=== PATIENT | male | born 1940 | race Caucasian/White ===

== ENCOUNTER 2020-05-15 14:31 | Emergency (ER) | payer OTHER ==
--- OUTSIDE RECORDS SUMMARY | 2020-05-15 14:34 | XMS REPORT ---
:1940 Author Organization [facility] Address [address] Villalba, [address] [place] [address] Care Team Providers Name Role Phone Montgomery Unavailable [phone] PROBLEMS Type Condition ICD9-CM [id number] Onset Condition SNOMED Code Notes Code Code Dates Status Problem Chronic kidney N18.3 Active 961952959 disease, stage 3 (moderate) Problem Dementia without F03.90 Active 47626624 behavioral disturbance, unspecified dementia type Problem Asymptomatic I65.21 Active 93159520 stenosis of right carotid artery Problem Basal cell C44.41 Active 601962070 carcinoma (BCC) of skin of neck Problem Anxiety and F41.8 Active 204704919 depression Problem Other specified H91.8X3 Active 030709079 hearing loss of both ears Problem Benign essential I10 Active 31702737 HTN Problem GERD K21.9 Active 505450858 (gastroesophageal reflux disease) Problem Hyperlipidemia E78.5 Active 63385583 Problem 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 245239907 cell carcinoma (BCC) Problem Hx of falling Z91.81 Active 290297551 Problem 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 Problem Benign prostatic N40.1 Active 47879133606708 hyperplasia with lower urinary tract symptoms, symptom details unspecified Problem SOB (shortness of R06.02 Active 157083352 breath) Problem 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 Active 943016056 with neuropathy Problem SOB (shortness of R06.02 Active 32009812 breath) on exertion Problem Neuropathy G62.9 Active 415984651 Problem Senile cataract, H25.9 Active 62078395 unspecified age-related cataract type, unspecified laterality Problem 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, without psychotic features ALLERGIES Allergen (clinical drug Drug/Non Drug Allergy Reaction Allergy Type Onset Date Status ingredient) documented on EMR penicillin Unknown Drug Allergy Active codeine codeine Unknown Drug Allergy Active ENCOUNTERS from 1940 to 2020-03-23 Encounter Location Date Provider Diagnosis [facility] [address] Mar, Rubi Montgomery [facility] [place], [place] depressi on F41.8 ; [id number] Benign essentia l HTN I10 and SOB (shortness of b reath) R06.02 IMMUNIZATIONS Vaccine Route Administration Date Status Flucelvax - multidose vial IM Intramuscular Apr 21, 2019 Admi nistered SOCIAL HISTORY Tobacco Use: Social History Observation Description Date Details (start date - stop date) Never Smoker Sex Assigned At : Social History Observation Description Sex Assigned At Unknown PHQ9 Question Answer Notes Little interest or pleasure in doing Nearly every day things Feeling down, depressed, or hopeless Nearly every day Trouble falling or staying asleep or More than half the days sleeping too much Feeling tired or having little energy More than half the day s Poor appetite or overeating Not at all Feeling bad about yourself, or that you Not at all are a failure, or have let yourself or your family down Trouble concentrating on things, such as Not at all reading the newspaper or watching television Moving or speaking so slowly that other Not at all people could have noticed; or the opposite, being so fidgety or restless that you have been moving around a lot more than usual Total Score 11 Interpretation Moderate Depression Thoughts that you would be better off 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 No Points 0 Interpretation Negative Tobacco Use/Smoking Question Answer Notes Are you a never smoker REASON FOR REFERRAL No Information VITAL SIGNS No information MEDICATIONS Medication SIG (Take, Route, Start Date End Date Status Frequency, Duration) Pantoprazole Sodium 40 MG 1 tablet Orally Once a day September, Active for 30 day(s) Tradjenta 5 MG 1 tablet Orally Once a day Active ProAir HFA 108 (90 Base) 2 puffs as needed Nov, Active MCG/ACT Inhalation every 6 hrs as needed for breathing for 30 days Venlafaxine HCl ER 150 MG 1 tablet with food Orally Apr, Active Once a day for 90 days MetFORMIN HCl ER (OSM) 1000 Take 1 tablet by mouth Active MG twice daily with meals. for 90 Losartan Potassium 50 MG Take 1 tablet by mouth Active daily. for 90 Pravastatin Sodium 40 MG Take 1 tablet by mouth Active daily. for 90 Venlafaxine HCl ER 75 MG 1 tablet with food Orally Active Once a day for 90 days Aripiprazole 5 MG 1 tablet Orally Once a day Jan, Active for 90 day(s) Donepezil HCl 5 MG Take 1 tablet by mouth at Active bedtime. for 90 PROCEDURES No Information RESULTS No Results REASON FOR VISIT Referrals MEDICAL (GENERAL) HISTORY Type Description Date Medical History Asymptomatic stenosis of right carotid a rtery Medical History Dementia without behavioral disturbance, unspecified dementia type Medical History Diabetes mellitus with neuropathy Medical History Chronic kidney disease, stage 3 (moderat e) Medical History Anxiety and depression Medical History Benign essential HTN Medical History Hyperlipidemia Medical History GERD (gastroesophageal reflux disease) Medical History Benign prostatic hyperplasia with lower urinary tract symptoms, symptom details unspecified Medical History Other specified hearing loss of both ear s Medical History Basal cell carcinoma (BCC) of skin of ne ck Medical History Adenoid basal cell carcinoma (BCC) Medical History Hx of falling Medical History SOB (shortness of breath) on exertion Surgical History pre cancer 1988 Goals Section No Information Health Concerns No Information MEDICAL EQUIPMENT No Information MENTAL STATUS No Information FUNCTIONAL STATUS No Information ASSESSMENTS Encounter Date Diagnosis Notes Mar, Benign essential HTN (ICD-10 - I10) Mar, SOB (shortness of breath) (ICD-10 - R06. 02) Mar, Anxiety and depression (ICD-10 - F41.8) PLAN OF TREATMENT Medication Medication Name Sig Start Date Stop Date MetFORMIN HCl ER (OSM) 1000 MG Take 1 tablet by mouth twice daily with meals. for 90 Aripiprazole 5 MG 1 tablet Orally Once a day for Jan, 90 day(s) Donepezil HCl 5 MG Take 1 tablet by mouth at bedtime. for 90 Venlafaxine HCl ER 150 MG 1 tablet with food Orally Once Apr, a day for 90 days Tradjenta 5 MG 1 tablet Orally Once a day Insurance Providers Payer Name Payer Payer Insured Patient Coverage Coverage End Address Phone Name Relationship to Start Date Bola e Insured [employer] [phone] Link,Stevie self [facility] [id number] [place] Replace [phone]
--- OUTSIDE RECORDS SUMMARY | 2020-05-15 14:34 | XMS REPORT ---
:[address] [facility] Address [address] Vill[address], [address] [place] [address] Care Team Providers Name Role Phone Montgomery Unavailable [phone] PROBLEMS Type Condition ICD9-CM [id number] Onset Condition SNOMED Code Notes Code Code Dates Status Problem Other specified H91.8X3 Active 194654051 hearing loss of both ears Problem Asymptomatic I65.21 Active 68925905 stenosis of right carotid artery Problem Anxiety and F41.8 Active 160781689 depression Problem Benign prostatic N40.1 Active 39045331686390 hyperplasia with lower urinary tract symptoms, symptom details unspecified Problem Benign essential I10 Active 43601662 HTN Problem GERD K21.9 Active 944638417 (gastroesophageal reflux disease) Problem 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 Active 448751741 with neuropathy Problem Hyperlipidemia E78.5 Active 85364287 Problem SOB (shortness of R06.02 Active 45555393 breath) on exertion Problem Senile cataract, H25.9 Active 74677347 unspecified age-related cataract type, unspecified laterality Problem Neuropathy G62.9 Active 091744040 Problem Benign prostatic N40.0 Active 937796139 hyperplasia without lower urinary tract symptoms Problem Hx of falling Z91.81 Active 810421572 Problem Chronic kidney N18.3 Active 553203278 disease, stage 3 (moderate) Problem Primary insomnia F51.01 Active 0543030 Problem 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 550905308 carcinoma (BCC) Problem Dementia without F03.90 Active 77760476 behavioral disturbance, unspecified dementia type Problem Basal cell C44.41 Active 098727435 carcinoma (BCC) of skin of neck Problem 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 95411890 recurrent major depressive disorder, without psychotic features Problem 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 33013243 mellitus with diabetic chronic kidney disease Problem SOB (shortness of R06.02 Active 213319646 breath) Problem Gastroesophageal K21.9 Active 130796764 reflux disease, unspecified whether esophagitis present ALLERGIES Allergen (clinical drug Drug/Non Drug Allergy Reaction Allergy Type Onset Date Status ingredient) documented on EMR penicillin Unknown Drug Allergy Active codeine codeine Unknown Drug Allergy Active ENCOUNTERS from 1940 to 2020-05-14 Encounter Location Date Provider Diagnosis [facility] [address] [facility] [address] May, 2020 [place] [address] IMMUNIZATIONS Vaccine Route Administration Date Status Flucelvax [...] would be better off 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 No Points 0 Interpretation Negative Tobacco Use/Smoking Question Answer Notes Are you a never smoker REASON FOR REFERRAL No Information VITAL SIGNS No information MEDICATIONS Medication SIG (Take, Route, Notes Start Date End Date Status Frequency, Duration) Pantoprazole Sodium 40 1 tablet Orally Once a September, Active MG day for 30 day(s) MetFORMIN HCl ER (OSM) Take 1 tablet by mouth Active 1000 MG twice daily with meals. for 90 Pravastatin Sodium 40 MG Take 1 tablet by mouth Active daily. for 90 Venlafaxine HCl ER 75 MG TAKE 1 CAPSULE BY Active MOUTH EVERY DAY WITH FOOD for 90 Tamsulosin HCl 0.4 MG 1 capsule Orally Once May, 1 Oct, Active a day for 90 days Trazodone HCl 50 MG 1 tablet at bedtime as May, Active needed Orally Once a day for 30 days Donepezil HCl 5 MG Take 1 tablet by mouth Active at bedtime. for 90 Venlafaxine HCl ER 150 1 tablet with food Apr, Active MG Orally Once a day for 90 days ProAir HFA 108 (90 Base) 2 puffs as needed Nov, Active MCG/ACT Inhalation every 6 hrs as needed for breathing for 30 days Losartan Potassium 50 MG Take 1 tablet by mouth Active daily. for 90 Aripiprazole 5 MG 1 tablet Orally Once a 09 Jan, 2020 Active day for 90 day(s) Tradjenta 5 MG 1 tablet Orally Once a Active day PROCEDURES No Information RESULTS No Results REASON FOR VISIT Sick MEDICAL (GENERAL) HISTORY Type Description Date Medical [...] No Information FUNCTIONAL STATUS No Information ASSESSMENTS No Information PLAN OF TREATMENT Medication Medication Name Sig Start Date Stop Date Tamsulosin HCl 0.4 MG 1 capsule Orally Once a day for 90 May, Oct, days Trazodone HCl 50 MG 1 tablet at bedtime as needed Orally May, Once a day for 30 days Insurance Providers Payer Name Payer Payer Insured Patient Coverage Coverage End Address Phone Name Relationship to Start Date Bola e Insured [employer] [phone] Link self [facility] [id number] Jr,Nolan P [place] Replace [phone]
--- OUTSIDE RECORDS SUMMARY | 2020-05-15 14:34 | XMS REPORT | Continuity of Care Document ---
:1940 Author Organization [facility] t Address [address] [place] [address] [address] [place] [address] Care Team Providers Name Role Phone Unavailable Unavailable Unavailable Problems This patient has no known problems. Allergies, Adverse Reactions, Alerts Allergy Allergy Status Severity Reaction(s) Onset Inactive Treating Comm ents Source Name Type Date Date Clinician penicill Adverse Active Info [facility] Reaction Available [facility] codeine Adverse Active Info Not [facility] Reaction Available [facility] Medications Ordered Filled Start Stop Current Ordering Indication Dosage Frequency Signature Comments Components Source Medication Medication Date Date Medication? Clinician (SIG) Name Name Aripiprazol Aripiprazol Yes Na Montgomery [address] [facility] Pantoprazol Pantoprazol Yes Na Montgomery [address] [facility] Sodium e Sodium 5-29 [facility] Venlafaxine Venlafaxine 2018-06 Yes Na Montgomery [address] [facility] HCl ER HCl ER 1-22 with food [facility] ProAir HFA ProAir HFA Yes Na Montgomery [address] [facility] 7-15 needed [facility] Venlafaxine Venlafaxine Yes Na Montgomery [address] [facility] HCl ER HCl ER with food [facility] MetFORMIN MetFORMIN Yes Na Montgomery Take [address] [facility] HCl ER HCl ER tablet by [facility] - (OSM) (OSM) mouth [facility] twice l daily with Outpati meals. ent Clinics Pravastatin Pravastatin Yes Na Montgomery Take [address] [facility] Sodium Sodium tablet by [facility] daily[facility] l [facility] Donepezil Donepezil Yes Na Montgomery Take [address] [facility] HCl HCl tablet by [facility] mouth at [facility] bedtime. l [facility] Tradjenta Tradjenta Yes Na Montgomery [address] [facility] Losartan Losartan Yes Na Montgomery Take [address] Potassium Potassium tablet by [facility] daily[facility] l [facility] Procedures This patient has no known procedures. Encounters Start End Encounter Admission Attending Care Care Encounter Source Date/Time Date/Time Type Type Clinicians Facility Department ID 2020-05-14 2020-05-14 [facility] [id number] [facility] 2020-03-23 2020-03-23 [facility] [id number] [facility] 2020-02-08 2020-02-08 [facility] [id number] 11:20[facility] 11:20:00 [facility] l Medicine Outpati ent Clinics 2020-01-28 2020-01-28 [facility] [id number] 17[facility]16[facility] 17[facility]00 [facility] Family [facility] l Medicine Outpati ent Clinics 2019-10-28 2019-10-28 [facility] [id number] 09:40:00 09:40:00 [facility] l Medicine Outpati ent Clinics 2019-09-12 2019-09-12 [facility] [id number] 15:36:00 15:36:00 [facility] l Medicine Outpati ent Clinics 2019-07-08 2019-07-08 [facility] [id number] 14:00:00 14:00:00 [facility] Medicine Outpat[facility] Clinics Results This patient has no known results.
[2020-05-15 15:53] LABS: Protime INR 1.12
--- NOTE | 2020-05-15 16:01 | RAD REPORT ---
EXAM DESCRIPTION: CT - Head Brain Wo Cont - 05/15/2020 3:49 pm CLINICAL HISTORY: Dizziness and weakness COMPARISON: None TECHNIQUE: Computed axial tomography of the head was obtained. IV contrast was not requested. All CT scans are performed using dose optimization technique as appropriate and may include automated exposure control or mA/KV adjustment according to patient size. FINDINGS: An intracranial bleed is not seen . The ventricles are normal in caliber. No extra-axial fluid collection is noted. Mild low-density areas within periventricular, deep and subcortical white matter likely represent isc hemic changes secondary to small vessel disease. Fluid within the sinuses/ mastoids is not seen. IMPRESSION: No acute intracranial abnormality is seen. If patient's symptoms persist MRI of the bra in would be recommended.
[2020-05-15 16:13] LABS: Absolute Lymphocytes (CBC) 1.3 K/uL (0.7-4.9); Basophils % 0.6 % (0-1.3); Hematocrit 40.7 % (39.6-49.0); Lymphocytes % 20.2 % (15.3-44.8); MPV 8.9 fL (7.6-11.3)
--- NOTE | 2020-05-15 16:14 | RAD REPORT ---
EXAM DESCRIPTION: CT - Angio Aorta For Dissection - 05/15/2020 3:51 pm CLINICAL HISTORY: Chest and abdominal pain COMPARISON: 2018 TECHNIQUE: Computed tomography angiography of the chest, abdomen pelvis were obtained. 100 cc Isovue 370 was administered intravenously. Coronal and sagittal reconstruction were performed. MIP 3D reconstruction was performed All CT scans are performed using dose optimization technique as appropriate and may include automated exposure control or mA/KV adjustment according to patient size. FINDINGS: An aortic dissection is not seen. An aortic aneurysm is not displayed. The celiac, SMA and JUANCHO are patent . A lung consolidation is not present. A pericardial effusion is not seen. A pleural effusion is not n oted. The liver,spleen, pancreas adrenals kidneys demonstrate no significant abnormality. The appendix is normal. There no evidence diverticulitis. Hepatic and renal cysts are present. The pr ostate gland is mildly enlarged. Spondylosis involves lumbar spine resulting in spinal stenosis. Smal l umbilical hernia. IMPRESSION: Negative for an aortic dissection.
[2020-05-15 16:31] LABS: ALT/SGPT 10 U/L (12-78); AST/SGOT 15 U/L (15-37); Albumin 2.9 g/dL (3.4-5.0); Alkaline Phosphatase 57 U/L (45-117); BUN Blood Urea Nitrogen 19 mg/dL (7-18); Bicarbonate 28 mmol/L (21-32); Bilirubin Direct 0.2 mg/dL (0-0.2); Bilirubin Total 0.6 mg/dL (0.2-1.0); Glucose Level 131 mg/dL (74-106); Magnesium 1.7 mg/dL (1.8-2.4); NT PRO-BNP 558 pg/mL (<450); Potassium 3.3 mmol/L (3.5-5.1); Protein, Total 5.6 g/dL (6.4-8.2); Sodium Level 140 mmol/L (136-145); Troponin (Emerg Dept Use Only) < 0.02 ng/mL (0.0-0.045)
--- NOTE | 2020-05-15 16:43 | RAD REPORT ---
EXAM DESCRIPTION: Mark Single View05/15/2020 3:50 pm CLINICAL HISTORY: Chest pain COMPARISON: 2017 FINDINGS: The lungs appear clear of acute infiltrate. The heart is normal size IMPRESSION: No acute abnormalities displayed
[2020-05-15 18:02] LABS: Urine Blood NEGATIVE (NEG); Urine Glucose NEGATIVE (NEG); Urine Protein NEGATIVE (NEG); Urine Specific Gravity 1.015 (1.005-1.030)
[2020-05-15] MEDS ORDERED: NA CHLORIDE 0.9% 500 ML ONE (18:43)
--- NOTE | 2020-05-15 18:54 | ER ---
Nurse's Notes [facility] Name: Stevie López Age: 80 yrs Sex: Male : 1940 Arrival Date: 05/15/2020 Time: 14:32 Bed 6 Private MD: Rubi Montgomery Diagnosis: Lower abdominal pain, unspecified;Cough;Malaise and fatigue Presentation: 05/15 14:35 Risk Assessment: Do you want to hurt yourself or someone else? Patient reports no sv desire to harm self or others. 14:35 Method Of Arrival: Wheelchair sv 14:35 Chief complaint: Patient states: abd bloating, chest congestion, unable to eat foods sv that bloat him up, nasal discharge/congestion, dizziness x 3 days. s/p fall on Thursday after a fixture broke and fell in the shower, was seen at [place]. Coronavirus screen: Client denies travel out of the [place] in the last 14 days. The client reports previous COVID testing was negative. Date of collection: May 13, 2020. Ebola Screen: No symptoms or risks identified at this time. Onset of symptoms was May 12, 2020. 14:35 Acuity: RANGEL 3 sv 14:41 Initial Sepsis Screen: Does the patient meet any 2 criteria? No. Patient's initial sv sepsis screen is negative. Does the patient have a suspected source of infection? No. Patient's initial sepsis screen is negative. Historical: - Allergies: 14:41 PENICILLINS; sv 14:41 Codeine; sv - PMHx: 14:41 Diabetes - NIDDM; Dementia; Alzheimers; Depression; Bipolar disorder; sv - PSHx: 14:41 Growth removed from back of neck; Growth removed from the neck of the urinary bladder; sv - Immunization history:: Adult Immunizations up to date, Flu vaccine is not up to date. - Social history:: Smoking status: Patient denies any tobacco usage or history of. Screenin:49 Abuse screen: Denies threats or abuse. Nutritional screening: No deficits noted. tw2 Tuberculosis screening: No symptoms or risk factors identified. Fall Risk Secondary diagnosis (15 points). Assessment: 14:56 Reassessment: provider at bedside at this time. tw2 15:30 Reassessment: While assessing pt he became tearful and reported that of 40+ years ph in December. General: Appears in no apparent distress. comfortable, slender, Behavior is calm, cooperative, appropriate for age. Pain: Complains of pain in mid-sternal area Pain radiates to abdomen. Neuro: Level of Consciousness is awake, alert, obeys commands, Oriented to person, place, time, situation. Cardiovascular: Capillary refill < 3 seconds in bilateral fingers Patient's skin is warm and dry. Respiratory: Airway is patent Respiratory effort is even, unlabored, Respiratory pattern is regular, symmetrical, Denies cough, shortness of breath. GI: Abdomen is flat, non-distended, Reports upper abdominal pain, bloating, intolerance of food, Patient currently denies diarrhea, vomiting. Derm: Skin is intact, Skin is pink, warm \T\ dry. Musculoskeletal: Circulation, motion, and sensation intact. Range of motion: intact in all extremities. 16:42 Reassessment: Patient appears in no apparent distress at this time. No changes from tw2 previously documented assessment. Patient and/or family updated on plan of care and expected duration. Pain level reassessed. Patient is alert, oriented x 3, equal unlabored respirations, skin warm/dry/pink. 17:43 Reassessment: Patient appears in no apparent distress at this time. Patient and/or ph family updated on plan of care and expected duration. Pain level reassessed. Patient is alert, oriented x 3, equal unlabored respirations, skin warm/dry/pink. 18:52 Reassessment: Patient appears in no apparent distress at this time. Patient and/or ph family updated on plan of care and expected duration. Pain level reassessed. Patient is alert, oriented x 3, equal unlabored respirations, skin warm/dry/pink. Vital Signs: 14:41 BP 136 / 81; Pulse 84; Resp 16; Temp 98.7; Pulse Ox 99% ; Weight 77.11 kg; Height 6 ft. sv 0 in. (182.88 cm); 16:41 BP 166 / 79; Pulse 66; Resp 17; Pulse Ox 100% on R/A; tw2 17:43 BP 167 / 79; Pulse 69; Resp 16; Pulse Ox 98% on R/A; ph 18:53 BP 171 / 87; Pulse 67; Resp 18; Pulse Ox 98% on R/A; ph 14:41 Body Mass Index 23.06 (77.11 kg, 182.88 cm) ED Course: 14:32 Patient arrived in ED. as 14:33 Rubi Montgomery MD is Private Physician. as 14:34 Arm band placed on. sv 14:38 Triage completed. sv 14:49 Norman Grace PA is PHCP. jmm 14:49 Selwyn Monroe MD is Attending Physician. jmm 14:58 Cammy Mullen, RN is Primary Nurse. ph 15:37 Patient has correct armband on for positive identification. Bed in low position. Call light in reach. Side rails up X 1. Pulse ox on. NIBP on. Door closed. Noise minimized. Warm blanket given. 15:38 Initial lab(s) drawn, by me, sent to lab. Inserted saline lock: 22 gauge in right ph antecubital area, using aseptic technique. Blood collected. 15:48 CT Head Brain wo Cont In Process Unspecified. EDMS 15:50 XRAY Chest (1 view) In Process Unspecified. EDMS 15:52 CT Aorta for Dissection In Process Unspecified. EDMS 17:47 No provider procedures requiring assistance completed. ph 18:51 Rubi Montgomery MD is Referral Physician. jmm 18:51 Salomón Black MD is Referral Physician. jmm 18:52 Jewel Graff MD is Referral Physician. jmm 18:54 Qing Ewing MD is Referral Physician. jmm 18:54 Varun Amin MD is Referral Physician. jmm 19:32 IV discontinued, intact, bleeding controlled, No redness/swelling at site. Pressure mg2 dressing applied. Administered Medications: 18:35 Drug: NS 0.9% 500 ml Route: IV; Rate: calculated rate; Site: right antecubital; ph Outcome: 18:53 Discharge ordered by MD. jmm 19:33 Discharged to home via wheelchair. mg2 19:33 Condition: stable 19:33 Discharge instructions given to patient, Instructed on discharge instructions, follow up and referral plans. Demonstrated understanding of instructions, follow-up care. 19:33 Patient left the ED. mg2 Signatures: Dispatcher [employer] EDMS Belinda Fischer RN RN Norman Grace PA PA jmLyndsay Stern as Cammy Mullen RN RN Padmini Garcia RN RN tw2 Ming Willis, RN RN mg2 Corrections: (The following items were deleted from the chart) 14:43 14:41 Pulse 84bpm; Resp 16bpm; Pulse Ox 99%; Temp 98.7F; 77.11 kg; Height 6 ft. 0 in.; sv BMI: 23.0; sv
--- NOTE | 2020-05-15 18:54 | EDPHYS ---
Physician Documentation [facility] [place] Name: Stevie López Age: 80 yrs Sex: Male : 1940 Arrival Date: 05/15/2020 Time: 14:32 Bed 6 Private MD: Rubi Montgomery ED Physician Selwyn Monroe HPI: 05/15 15:02 This 80 yrs old Male presents to ER via Wheelchair with complaints of jmm Abdominal Swelling, Chest Congestion, Dizziness, Sore Throat. 15:02 The patient presents with abdominal pain in the lower abdomen. Onset: The jmm symptoms/episode began/occurred gradually, 1 week(s) ago. The symptoms do not radiate. Associated signs and symptoms: Pertinent positives: constipation, Pertinent negatives: nausea and vomiting. This is an 80 year old male with a history of dm, alzheimers, depression, bipolar that presents to the ED with complaints of weakness, fatigue, lower abdominal pain which ascends into his chest. Patient states having episodes of near syncope. This began after an initial fall 1 week ago. Patient prescribed levaquin for lower abdominal pain. . Historical: - Allergies: 14:41 PENICILLINS; sv 14:41 Codeine; sv - PMHx: 14:41 Diabetes - NIDDM; Dementia; Alzheimers; Depression; Bipolar disorder; sv - PSHx: 14:41 Growth removed from back of neck; Growth removed from the neck of the urinary bladder; sv - Immunization history:: Adult Immunizations up to date, Flu vaccine is not up to date. - Social history:: Smoking status: Patient denies any tobacco usage or history of. ROS: 15:02 Constitutional: Positive for fatigue. jmm 15:02 Cardiovascular: Positive for 15:02 Respiratory: Positive for cough. 15:02 Abdomen/GI: Positive for abdominal pain. 15:02 Neuro: Positive for syncope. 15:02 All other systems are negative. Exam: 15:02 Constitutional: This is a well developed, well nourished patient who is awake, alert, jmm and in no acute distress. Head/Face: atraumatic. Eyes: EOMI, no conjunctival erythema appreciated ENT: Moist Mucus Membranes Neck: Trachea midline, Supple Chest/axilla: Normal chest wall appearance and motion. Cardiovascular: Regular rate and rhythm. No edema appreciated Respiratory: Normal respirations, no respiratory distress appreciated Abdomen/GI: Non distended, soft Back: Normal ROM Skin: General appearance color normal MS/ Extremity: Moves all extremities, no obvious deformities appreciated, no edema noted to the lower extremities Neuro: Awake and alert, normal gait Psych: Behavior is normal, Mood is normal, Patient is cooperative and pleasant Vital Signs: 14:41 BP 136 / 81; Pulse 84; Resp 16; Temp 98.7; Pulse Ox 99% ; Weight 77.11 kg; Height 6 ft. sv 0 in. (182.88 cm); 16:41 BP 166 / 79; Pulse 66; Resp 17; Pulse Ox 100% on R/A; tw2 17:43 BP 167 / 79; Pulse 69; Resp 16; Pulse Ox 98% on R/A; ph 18:53 BP 171 / 87; Pulse 67; Resp 18; Pulse Ox 98% on R/A; ph 14:41 Body Mass Index 23.06 (77.11 kg, 182.88 cm) sv MDM: 14:49 Patient medically screened. shira 18:50 Data reviewed: vital signs, nurses notes. Counseling: I had a detailed discussion with vi the patient and/or guardian regarding: the historical points, exam findings, and any diagnostic results supporting the discharge/admit diagnosis, lab results, radiology results, the need for outpatient follow up, to return to the emergency department if symptoms worsen or persist or if there are any questions or concerns that arise at home. ED course: Patient is alert and non toxic in appearance. I discussed the need to follow up with pcp for further evaluation. Patient was otherwise given strict return precautions. Patient understood and agrees with the plan of care. . 05/15 15:02 Order name: Basic Metabolic Panel; Complete Time: 16:31 [facility] 05/15 15:02 Order name: CBC with Diff; Complete Time: 16:18 [facility] 05/15 15:02 Order name: LFT's; Complete Time: 16:31 [facility] 05/15 15:02 Order name: Magnesium; Complete Time: 16:31 [facility] 05/15 15:02 Order name: NT PRO-BNP; Complete Time: 16:31 [facility] 05/15 15:02 Order name: PT-INR; Complete Time: 16:10 [facility] 05/15 15:02 Order name: Troponin (emerg Dept Use Only); Complete Time: 16:31 [facility] 05/15 15:02 Order name: XRAY Chest (1 view); Complete Time: 16:47 [facility] 05/15 15:02 Order name: EKG; Complete Time: 15:03 [facility] 05/15 15:02 Order name: Cardiac monitoring; Complete Time: 15:35 [facility] 05/15 15:02 Order name: CT Aorta for Dissection; Complete Time: 16:18 [facility] 05/15 15:02 Order name: CT Head Brain wo Cont; Complete Time: 16:10 [facility] 05/15 17:26 Order name: Urine Dipstick--Ancillary (enter results); Complete Time: 18:03 em1 05/15 15:02 Order name: EKG - Nurse/Tech; Complete Time: 15:35 [facility] 05/15 15:02 Order name: IV Saline Lock; Complete Time: 15:35 [facility] 05/15 15:02 Order name: Labs collected and sent; Complete Time: 15:35 [facility] 05/15 15:02 Order name: O2 Per Protocol; Complete Time: 15:35 [facility] 05/15 15:02 Order name: O2 Sat Monitoring; Complete Time: 15:35 [facility] 05/15 16:33 Order name: Urine Dipstick-Ancillary (obtain specimen); Complete Time: 17:25 [facility] Administered Medications: 18:35 Drug: NS 0.9% 500 ml Route: IV; Rate: calculated rate; Site: right antecubital; ph Disposition: 05/16 11:54 Co-signature as Attending Physician, Selwyn Monroe MD I agree with the assessment and shira plan of care. Disposition: 05/15/20 18:53 Discharged to Home. Impression: Lower abdominal pain, unspecified, Cough, Malaise and fatigue. - Condition is Stable. - Discharge Instructions: Abdominal Pain, Adult, Dehydration, Elderly, Fatigue. - Medication Reconciliation Form, Thank You Letter, Antibiotic Education, Prescription Opioid Use form. - Follow up: Rubi Montgomery MD; When: Tomorrow; Reason: Recheck today's complaints, Continuance of care, Re-evaluation by your physician. Follow up: Salomón Black MD; When: 2 - 3 days; Reason: Recheck today's complaints, Continuance of care, Re-evaluation by your physician. Follow up: Jewel Graff MD; When: 2 - 3 days; Reason: Recheck today's complaints, Continuance of care, Re-evaluation by your physician. Follow up: Qing Ewing MD; When: 2 - 3 days; Reason: Recheck today's complaints, Continuance of care, Re-evaluation by your physician. Follow up: Varun Amin MD; When: 2 - 3 days; Reason: Recheck today's complaints, Continuance of care, Re-evaluation by your physician. Signatures: Dispatcher [employer] Belinda Alvarado RN RN sv Anderson, Corey, MD MD cha Mickail, Joel, PA PA Cammy Donahue RN RN ph Ming Willis RN RN mg2 Corrections: (The following items were deleted from the chart) 05/15 18:54 18:53 05/15/2020 18:53 Discharged to Home. Impression: Lower abdominal pain, jmm unspecified; Cough; Malaise and fatigue. Condition is Stable. Forms are Medication Reconciliation Form, Thank You Letter, Antibiotic Education, Prescription Opioid Use. Follow up: Rubi Montgomery; When: Tomorrow; Reason: Recheck today's complaints, Continuance of care, Re-evaluation by your physician. Follow up: A Black; When: 2 - 3 days; Reason: Recheck today's complaints, Continuance of care, Re-evaluation by your physician. Follow up: Jewel Graff; When: 2 - 3 days; Reason: Recheck today's complaints, Continuance of care, Re-evaluation by your physician. jmm 19:33 18:54 05/15/2020 18:53 Discharged to Home. Impression: Lower abdominal pain, mg2 unspecified; Cough; Malaise and fatigue. Condition is Stable. Forms are Medication Reconciliation Form, Thank You Letter, Antibiotic Education, Prescription Opioid Use. Follow up: Ruib Abarcag; When: Tomorrow; Reason: Recheck today's complaints, Continuance of care, Re-evaluation by your physician. Follow up: A Black; When: 2 - 3 days; Reason: Recheck today's complaints, Continuance of care, Re-evaluation by your physician. Follow up: Jewel Graff; When: 2 - 3 days; Reason: Recheck today's complaints, Continuance of care, Re-evaluation by your physician. Follow up: Qing Ewing; When: 2 - 3 days; Reason: Recheck today's complaints, Continuance of care, Re-evaluation by your physician. Follow up: Varun Amin; When: 2 - 3 days; Reason: Recheck today's complaints, Continuance of care, Re-evaluation by your physician. vi
--- NOTE | 2020-05-16 19:16 | EKG ---
Test Date: 2020-05-15 Test Time: 15:26:55 Deli/Bakery Associate: ELOINA MEASUREMENT RESULTS: Intervals: Rate: 71 CT: QRSD: 118 QT: 438 QTc: 475 [place]: P: CT: QRS: 258 T: 84 INTERPRETIVE STATEMENTS: Atrial fibrillation Right bundle branch block Inferior infarct, age undetermined Anterior infarct, age undetermined Abnormal ECG No previous ECG available for comparison Electronically Signed On 05-16-20 19:12:56 CARBOY FILLER by Dave Henderson
--- NOTE | 2020-05-16 19:16 | EKG ---
Test Date: 2020-05-15 Test Time: 15:27:50 Stud Setter: ELOINA MEASUREMENT RESULTS: Intervals: Rate: 69 WI: 178 QRSD: 142 QT: 446 QTc: 477 [place]: P: 38 WI: 178 QRS: -88 T: 26 INTERPRETIVE STATEMENTS: Normal sinus rhythm Left axis deviation Right bundle branch block Abnormal ECG Compared to ECG 05/15/2020 15:26:55 Left-axis deviation now present Atrial fibrillation no longer present Myocardial infarct finding no longer present Electronically Signed On 05-16-20 19:12:55 MANAGER DOCUMENT CONTROL by Dave Henderson
[2020-05-17 19:03] VITALS: TEMP 98.7
[2020-05-17 19:06] VITALS: O2SAT 98
[2020-05-17 19:07] VITALS: BP 171/87
== END 2020-05-15 19:33 | disposition home or self-care (01) ==
LOC: ER 14:31
DX: R05 Cough (principal); R53.81 Other malaise; R53.83 Other fatigue; G30.9 Alzheimer's disease, unspecified; F02.80 Dementia in other diseases classified elsewhere, unspecified severity, without behavioral disturbance, psychotic disturbance, mood disturbance, and anxiety; Z88.0 Allergy status to penicillin; Z88.5 Allergy status to narcotic agent
CPT/HCPCS: 93005 ×2; 85025; 80048; 36415; 83735; 85610; 82565; 80076; 81003; 84484; 83880; 70450; 71275; 74175; 71045; Q9967; J7040; 99284

== ENCOUNTER 2021-02-01 17:40 | Inpatient (IN) | payer OTHER ==
--- OUTSIDE RECORDS SUMMARY | 2021-02-01 17:43 | XMS REPORT | Continuity of Care Document ---
:1940 Author Organization [facility] t Address [address] [place] [address] [address]. [address] [place] [address] Care Team Providers Name Role Phone Unavailable Unavailable Unavailable Problems This patient has no known problems. Allergies, Adverse Reactions, Alerts Allergy Allergy Status Severity Reaction(s) Onset Inactive Treating Comm ents Source Name Type Date Date Clinician penicill Adverse Active Info Not [facility] Reaction Available [facility] codeine Adverse Active Info Not [facility] Reaction Available [facility] Medications Ordered Filled Start Stop Current Ordering Indication Dosage Frequency Signature Comments Components Source Medication Medication Date Date Medication? Clinician (SIG) Name Name Aripiprazol Aripiprazol Yes Na Montgomery [address] [facility] Pantoprazol Pantoprazol Yes Na Montgomery [address] [facility] Sodium e Sodium 5-29 [facility] Venlafaxine Venlafaxine 2018-06 Yes Na Montgomery [address] [facility] HCl ER HCl ER 1-22 with food [facility] ProAir HFA ProAir HFA Yes Na Montgomery [address] [facility] 7-15 needed [facility] Venlafaxine Venlafaxine Yes Na Montgomery [address] [facility] HCl ER HCl ER with food [facility] MetFORMIN MetFORMIN Yes Na Montgomery Take [...] Date/Time Type Type Clinicians Facility Department ID 2020-12-28 2020-12-[facility] [id number] 2020-11-19 2020-11-19 [facility] [id number] [facility] 2020-11-06 2020-11-06 [facility] [id number] [facility] 2020-10-09 2020-10-09 [facility] [id number] [facility] 2020-09-06 2020-09-06 [facility] [id number] [facility] 2020-09-04 2020-09-04 [facility] [id number] [facility] 2020-08-20 2020-08-20 [facility] [id number] [facility] 2020-08-10 2020-08-10 [facility] [id number] [facility] 2020-08-07 2020[facility]08-07 [facility] [id number] [facility] 2020-08-07 2020-08-07 [facility] [id number] [facility] 2020-08-07 2020-08-07 [facility] [id number] [facility] 2020-08-07 2020-08-07 [facility] [id number] [facility] 2020-08-06 2020-08-06 [facility] [id number] [facility] 2020-08-06 2020-08-06 [facility] [id number] [facility] 2020-07-27 2020-07-27 [facility] [id number] [facility] 2020-07-26 2020-07-26 [facility] [id number] [facility] 2020-07-10 2020-07-10 [facility] [id number] [facility] 2020-05-22 2020-05-22 [facility] [id number] [facility] 2020-05-16 2020-05-16 [facility] [id number] [facility] 2020-05-14 2020-05-14 [facility] [id number] [facility] 2020-05-14 2020-05-14 [facility] [id number] [facility] 2020-03-23 2020-03-23 [facility] [id number] [facility] 2020-02-08 2020-02-08 [facility] [id number] [facility] 11[facility]20[facility] 11:20:[address] [facility] 2020-01-28 2020-01-28 [facility] [id number] [facility] 17:16:00 17:16:00 [facility] Clin[facility] 2019-10-28 2019-10-28 [facility] [id number] [facility] 09[facility]40[facility]00 09:40:[address] [facility] 2019-09-12 2019-09-12 [facility] [id number] [facility] 15:36:00 15:36:[address] [facility] 2019-07-08 2019-07-08 [facility] [id number] [facility] 14:00:00 14:00:[address] [facility] Results This patient has no known results.
--- NOTE | 2021-02-01 18:35 | RAD REPORT ---
EXAM DESCRIPTION: Mark Single View02/01/2021 6:21 pm CLINICAL HISTORY: congestion COMPARISON: 2019 FINDINGS: The lungs appear clear of acute infiltrate. The heart is normal size IMPRESSION: No acute abnormalities displayed
[2021-02-01] MEDS ORDERED: LORAZEPAM 1 MG TABLET ONE (18:59)
[2021-02-01 19:03] LABS: Urine Blood Negative (Negative); Urine Glucose Negative (Negative); Urine Protein Negative (Negative)
--- NOTE | 2021-02-01 19:10 | RAD REPORT ---
EXAM DESCRIPTION: CT - Head Brain Wo Cont - 02/01/2021 6:49 pm CLINICAL HISTORY: Alteration of awareness/confusion COMPARISON: 2019 TECHNIQUE: Computed axial tomography of the head was obtained. IV contrast was not requested. All CT scans are performed using dose optimization technique as appropriate and may include automated exposure control or mA/KV adjustment according to patient size. FINDINGS: An intracranial bleed is not seen . The ventricles are normal in caliber. No extra-axial fluid collection is noted. Mild low-density areas within periventricular, deep and subcortical white matter likely represent is chemic changes secondary to small vessel disease. Fluid within the sinuses/ mastoids is not seen. IMPRESSION: No acute intracranial abnormality is seen. If patient's symptoms persist MRI of the bra in would be recommended.
[2021-02-01 19:20] LABS: Barbiturates NEGATIVE (NEGATIVE); Benzodiazepines NEGATIVE (NEGATIVE); Cocaine NEGATIVE (NEGATIVE); METHAMPHETAM NEGATIVE (NEGATIVE); Methadone NEGATIVE (NEGATIVE); Opiates NEGATIVE (NEGATIVE); Phencyclidine NEGATIVE (NEGATIVE); THC Cannibis NEGATIVE (NEGATIVE)
[2021-02-01 19:42] LABS: Urine Bacteria <20 /HPF (NONE SEEN); Urine RBC <5 /HPF (NONE SEEN)
[2021-02-01 19:43] LABS: Urine Mucus 1+ /HPF (NONE SEEN)
[2021-02-01 20:23] LABS: Basophils % 0.5 % (0-1.3); Hematocrit 39.9 % (39.6-49.0); Lymphocytes % 23.2 % (15.3-44.8); MPV 8.2 fL (7.6-11.3)
[2021-02-01 20:34] LABS: Protime INR 1.1
[2021-02-01 20:46] LABS: ALT/SGPT 16 U/L (12-78); AST/SGOT 9 U/L (15-37); Albumin 3.6 g/dL (3.4-5.0); Alkaline Phosphatase 67 U/L (45-117); BUN Blood Urea Nitrogen 23 mg/dL (7-18); Bicarbonate 30 mmol/L (21-32); Bilirubin Direct 0.2 mg/dL (0-0.2); Bilirubin Total 0.7 mg/dL (0.2-1.0); Glucose Level 167 mg/dL (74-106); Lipase 77 U/L (73-393); Potassium 4.3 mmol/L (3.5-5.1); Protein, Total 6.6 g/dL (6.4-8.2); Sodium Level 142 mmol/L (136-145)
[2021-02-01] MEDS ORDERED: NA CHLORIDE 0.9% 1,000 ML ONE (21:27)
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
[2021-02-01] MEDS ORDERED: ZIPRASIDONE MESYLA 20 MG/VIAL IM ONE (23:40)
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
--- NOTE | 2021-02-02 15:11 | EKG ---
Test Date: 2021-02-02 Test Time: 02:58:56 Director Network Development: JOHAN MEASUREMENT RESULTS: Intervals: Rate: 65 WI: 184 QRSD: 132 QT: 440 QTc: 457 [place]: P: 72 WI: 184 QRS: -90 T: 8 INTERPRETIVE STATEMENTS: Normal sinus rhythm Right bundle branch block Abnormal ECG Compared to ECG 05/15/2020 15:27:50 Left-axis deviation no longer present Electronically Signed On 02-02-21 15:10:43 CDT by Dave Henderson
[2021-02-03] MEDS ORDERED: WATER FOR INJ,STERILE 10 ML ONE (23:36)
[2021-02-03] MEDS ORDERED: ZIPRASIDONE MESYLA 20 MG/VIAL IM ONE (23:36)
[2021-02-04] MEDS ORDERED: LABETALOL 20 MG/4ML SYRINGE IV PRN (14:06)
[2021-02-04] MEDS ORDERED: ACETAMINOPHEN 500 MG TAB PO PRN (14:08)
[2021-02-04] MEDS ORDERED: ONDANSETRON 4 MG/2 ML VIAL IV PRN (14:08)
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
--- NOTE | 2021-02-04 14:35 | RAD REPORT ---
EXAM DESCRIPTION: CT - Head Brain Wo Cont - 02/04/2021 2:26 pm CLINICAL HISTORY: AMS Headache, drowsiness COMPARISON: Head Brain Wo Cont dated 02/01/2021; Head Brain Wo Cont dated 05/15/2020 TECHNIQUE: All CT scans are performed using dose optimization technique as appropriate and may inclu de automated exposure control or mA/KV adjustment according to patient size. FINDINGS: No intracranial hemorrhage, hydrocephalus or extra-axial fluid collection.Moderate general ized brain atrophy is present.No areas of brain edema or evidence of midline shift. The paranasal sinuses and mastoids are clear. The calvarium is intact. IMPRESSION: No acute intracranial abnormality.
[2021-02-04] MEDS ORDERED: ZIPRASIDONE MESYLA 20 MG/VIAL IM ONE ×2 (19:30→20:13)
[2021-02-04] MEDS ORDERED: WATER FOR INJ,STERILE 10 ML IM PRN (20:08)
[2021-02-04] MEDS ORDERED: WATER FOR INJ,STERILE 10 ML ONE (20:13)
[2021-02-05] MEDS: HEPARIN 5000 UNIT/ML 1 ML VIAL SQ SCH ×3 (01:00→17:00)
[2021-02-05 06:37] LABS: Magnesium 1.9 mg/dL (1.8-2.4); Phosphorus 2.8 mg/dL (2.5-4.9); Potassium 3.8 mmol/L (3.5-5.1)
[2021-02-05 06:41] LABS: Basophils % 0.7 % (0-1.3); Hematocrit 35.7 % (39.6-49.0); Lymphocytes % 32.1 % (15.3-44.8); RBC Red Blood Cell Count 4.19 M/uL (4.33-5.43)
[2021-02-05] MEDS: ASPIRIN 81 MG CHEWABLE TABLET PO SCH (09:00)
[2021-02-06] MEDS: HEPARIN 5000 UNIT/ML 1 ML VIAL SQ SCH ×3 (01:23→16:16)
[2021-02-06] MEDS: ASPIRIN 81 MG CHEWABLE TABLET PO SCH (07:55)
[2021-02-07] MEDS: HEPARIN 5000 UNIT/ML 1 ML VIAL SQ SCH ×3 (00:09→17:00)
[2021-02-07 05:41] LABS: Potassium 3.6 mmol/L (3.5-5.1)
[2021-02-07] MEDS ORDERED: POTASSIUM CL SA 10 MEQ TAB PO ONE (09:00)
[2021-02-07] MEDS: ASPIRIN 81 MG CHEWABLE TABLET PO SCH (09:52)
--- NOTE | 2021-02-07 11:11 | P.PN ---
Subjective Date of Service: 02/05/21 Patient still very depressed. Seen by [facility] and recommended transfer to inpatient [facility] psych facility. Review of Systems 10-point ROS is otherwise unremarkable Physical Examination - Vital Signs Temperature: 98 F Blood Pressure: 154/77 Pulse: 83 Respirations: 18 Pulse Ox (%): 99 - Physical Exam General: Alert, In no apparent distress, Demented HEENT: Atraumatic, PERRLA, EOMI Neck: Supple, JVD not distended Respiratory: Clear to auscultation bilaterally, Normal air movement Cardiovascular: Regular rate/rhythm, Normal S1 S2 Gastrointestinal: Normal bowel sounds, Soft and benign, Non-distended, No tenderness Musculoskeletal: No tenderness Integumentary: No rashes Neurological: Sensation intact, Cranial nerves 3-12 intact Other Physical/Emotional Findings: Depression - Studies Medications List Reviewed: Yes Assessment & Plan - Problems (Diagnosis) (1) Major depression Current Visit: Yes Status: Acute Qualifiers: Psychotic features: with psychotic features - Plan Plan: 1. Continue with referral to [facility] facility - Advance Directives Does patient have a Living Will: No Does patient have a Durable POA for Healthcare: No - Code Status/Comfort Care Code Status: Full Code Physician Review: Patient Assessed, Agree with Above Assessment and Plan
--- NOTE | 2021-02-07 11:14 | P.PN ---
Date of Service: 02/07/21 Subjective Patient clinically stable with no new changes. Awaiting for transfer Review of Systems 10-point ROS is otherwise unremarkable Physical Examination - Vital Signs Reviewed - Physical Exam General: Alert, In no apparent distress, Demented Respiratory: Clear to auscultation bilaterally, Normal air movement Cardiovascular: Regular rate/rhythm, Normal S1 S2 Gastrointestinal: Normal bowel sounds, Soft and benign, Non-distended, No tenderness Neurological: Sensation intact, Cranial nerves 3-12 intact Other Physical/Emotional Findings: Depression Assessment & Plan - Problems (Diagnosis) (1) Major depression Current Visit: Yes Status: Acute Qualifiers: Psychotic features: with psychotic features (2) Type 2 diabetes Current Visit: Yes Status: Chronic - Plan Plan: Patient continues to remain stable medically. Still depressed. Continue antidepressant at this time 1. Continue with referral to [facility] facility 2. Blood sugars are stable - Advance Directives Does patient have a Living Will: No Does patient have a Durable POA for Healthcare: No - Code Status/Comfort Care Code Status: Full Code Physician Review: Patient Assessed, Agree with Above Assessment and Plan
--- NOTE | 2021-02-07 11:14 | P.PN ---
Date of Service: 02/06/21 Subjective Patient continues to improve with no complaints. Review of Systems 10-point ROS is otherwise unremarkable Physical Examination - Vital Signs Reviewed - Physical Exam General: Alert, In no apparent distress, Demented Respiratory: Clear to auscultation bilaterally, Normal air movement Cardiovascular: Regular rate/rhythm, Normal S1 S2 Gastrointestinal: Normal bowel sounds, Soft and benign, Non-distended, No tenderness Neurological: Sensation intact, Cranial nerves 3-12 intact Other Physical/Emotional Findings: Depression Assessment & Plan - Problems (Diagnosis) (1) Major depression Current Visit: Yes Status: Acute Qualifiers: Psychotic features: with psychotic features (2) Type 2 diabetes Current Visit: Yes Status: Chronic - Plan Plan: No change in plan of care. Continue as mentioned below 1. Continue with referral to [facility] facility 2. Blood sugars are stable - Advance Directives Does patient have a Living Will: No Does patient have a Durable POA for Healthcare: No - Code Status/Comfort Care Code Status: Full Code Physician Review: Patient Assessed, Agree with Above Assessment and Plan
[2021-02-07] MEDS ORDERED: METOPROLOL TAR 50 MG TAB PO ONE (11:16)
[2021-02-07] MEDS ORDERED: ARIPiprazole 5 MG TAB PO ONE (11:16)
[2021-02-07] MEDS ORDERED: VENLAFAXINE HCL 75 MG TABLET PO ONE (11:16)
[2021-02-07 14:54] VITALS: BMI 22.9
[2021-02-07] MEDS: METOPROLOL TAR 25 MG TAB PO SCH (18:49)
[2021-02-07] MEDS: ARIPiprazole 5 MG TAB PO SCH (21:42)
[2021-02-07] MEDS: VENLAFAXINE HCL 75 MG TABLET PO SCH (21:42)
[2021-02-07] MEDS: LORazepam 2 MG/ML VIAL IM ONE ×2 (21:57→22:05)
[2021-02-07] MEDS ORDERED: LORAZEPAM 1 MG TABLET PO ONE (22:15)
[2021-02-08] MEDS ORDERED: ZIPRASIDONE MESYLA 20 MG/VIAL IM ONE (00:58)
[2021-02-08] MEDS ORDERED: WATER FOR INJ,STERILE 10 ML IM PRN (00:58)
[2021-02-08] MEDS: HEPARIN 5000 UNIT/ML 1 ML VIAL SQ SCH ×3 (01:00→17:00)
[2021-02-08] MEDS: METOPROLOL TAR 25 MG TAB PO SCH ×3 (06:00→20:21)
[2021-02-08 06:47] LABS: Potassium 4.1 mmol/L (3.5-5.1)
[2021-02-08] MEDS: VENLAFAXINE HCL 75 MG TABLET PO SCH ×2 (10:26→20:23)
[2021-02-08] MEDS: ASPIRIN 81 MG CHEWABLE TABLET PO SCH (10:26)
[2021-02-08] MEDS: ARIPiprazole 5 MG TAB PO SCH (20:22)
[2021-02-09] MEDS: HEPARIN 5000 UNIT/ML 1 ML VIAL SQ SCH ×2 (01:00→07:49)
[2021-02-09] MEDS: METOPROLOL TAR 25 MG TAB PO SCH (06:00)
[2021-02-09] MEDS ORDERED: LOSARTAN POTASSIUM 50 MG TABLET PO SCH (09:00)
[2021-02-09] MEDS: VENLAFAXINE HCL 75 MG TABLET PO SCH (09:06)
[2021-02-09] MEDS: ASPIRIN 81 MG CHEWABLE TABLET PO SCH (09:07)
[2021-02-09 10:28] VITALS: O2SAT 96
[2021-02-09 12:40] VITALS: BP 149/66; TEMP 97.9
--- NOTE | 2021-02-11 00:56 | P.PN ---
Date of Service: 02/08/21 Subjective Patient continues to remain stable. Awaiting for transfer. [facility]. Review of Systems 10-point ROS is otherwise unremarkable Physical Examination - Vital Signs Reviewed - Physical Exam General: Alert, In no apparent distress, Demented Respiratory: Clear to auscultation bilaterally, Normal air movement Cardiovascular: Regular rate/rhythm, Normal S1 S2 Gastrointestinal: Normal bowel sounds, Soft and benign, Non-distended, No tenderness Neurological: Sensation intact, Cranial nerves 3-12 intact Other Physical/Emotional Findings: Depression Assessment & Plan - Problems (Diagnosis) (1) Major depression Current Visit: Yes Status: Acute Qualifiers: Psychotic features: with psychotic features (2) Type 2 diabetes Current Visit: Yes Status: Chronic - Plan Plan: Patient continues to remain stable medically. Still depressed. Continue antidepressant at this time 1. Awaiting transfer to geriatric psych facility 2. Blood sugars are stable - Advance Directives Does patient have a Living Will: No Does patient have a Durable POA for Healthcare: No - Code Status/Comfort Care Code Status: Full Code Physician Review: Patient Assessed, Agree with Above Assessment and Plan
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
== END 2021-02-09 13:44 | DRG 885 ==
LOC: ER 17:40 → ERHOLD 02-04 14:04 → 2ND 02-04 19:46
PROVIDERS: ADMIT Hospitalist; ATTEND Family Medicine
DX: F32.3 Major depressive disorder, single episode, severe with psychotic features (principal); G93.40 Encephalopathy, unspecified; F03.90 Unspecified dementia, unspecified severity, without behavioral disturbance, psychotic disturbance, mood disturbance, and anxiety; E11.9 Type 2 diabetes mellitus without complications; Z20.822 Contact with and (suspected) exposure to COVID-19
CPT/HCPCS: 36415; 70450; 71045; 80048; 80076; 80307; 80320; 80329; 81003; 81015; 82947; 83690; 83735; 84100; 85025; 85610; 85730; 93005; 96372; 99285; J1644; J3486; J7030; U0003

== ENCOUNTER 2022-03-28 14:45 | Emergency (ER) | payer OTHER ==
--- OUTSIDE RECORDS SUMMARY | 2022-03-28 14:59 | XMS REPORT | Continuity of Care Document ---
:1940 Author Organization [facility] t Address [address] [place] [address] Dr. Aparicio [address] [place] [address] Care Team Providers Name Role Phone Rubi Montgomery Attending Clinician Unavailable DAYDAY, DR SIDHU Attending Clinician Unavailable DAYDAY, DR SIDHU Admitting Clinician Unavailable Payers Payer Name Policy Type Policy Number Effective Date Expiration Date S giles [employer] C1 [id number] Common S pirit ing Medicare [facility] [employer] C1 [id number] Common S pirit ing Medicare [facility] [employer] C1 [id number] Common S pirit ing Medicare [facility] [employer] C1 [id number] Common S pirit ing Medicare [facility] [employer] C1 [id number] Common S pirit ing Medicare [facility] Replace [facility] [employer] C1 [id number] Common S pirit ing Medicare [facility] [employer] C1 [id number] Common S pirit ing Medicare [facility] [employer] C1 [id number] Common S pirit ing Medicare [facility] [employer] C1 [id number] Common S pirit ing Medicare [facility] [employer] C1 [id number] Common S pirit ing Medicare [facility] [employer] C1 [id number] Common S pirit ing Medicare - [facility] St Replace [facility] [employer] C1 [id number] Common S pirit ing Medicare - [facility] St Replace [facility] [employer] C1 [id number] Common S pirit ing Medicare - [facility] St Replace [facility] [employer] C1 [id number] Common S pirit ing Medicare - [facility] St Replace [facility] [employer] C1 [id number] Common S pirit ing Medicare - [facility] St Replace [facility] [employer] C1 [id number] Common S pirit ing Medicare - [facility] St Replace [facility] [employer] C1 [id number] Common S pirit ing Medicare - [facility] St Replace [facility] [employer] C1 [id number] Common S pirit ing Medicare - [facility] Replace [facility] [employer] C1 [id number] Common S pirit ing Medicare - [facility] St Replace [facility] [employer] C1 [id number] Common S pirit ing Medicare - [facility] Replace [facility] [employer] C1 [id number] Common S pirit ing Medicare - [facility] Replace [facility] [employer] C1 [id number] Common S pirit ing Medicare - [facility] Replace [facility] [employer] C1 [id number] Common S pirit ing Medicare - [facility] St Replace [facility] [employer] C1 [id number] Common S pirit ing Medicare - [facility] Replace [facility] Problems Condition Condition Condition Status Onset Resolution Last Treating Co mments Source Name Details Category Date Date Treatment Clinician Date [id number] +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, Medical stage 3 Center (moderate) [id number] Dementia Problem Active Commo n without [facility] behavioral - [facility] disturb[facility], [facility] un[facility]ifie [facility] dementia Center type [id number] Asymptomat Problem Active Com mon ic [facility] stenosis - [facility] 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 [facility] artery [facility] [id number] Basal cell Problem Active Co mmon carcinoma [facility] (BCC) of - [facility] skin of [facility] neck [facility] 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 - [facility] depressive [facility] [id number] Other Problem Active Common specified [facility] 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 [facility] Essential Benign Problem Active Common hypertensi essential Spi rit on HTN - CHI [facility] Gastroesop Gastroesop Problem Active C ommon hageal hageal [facility] reflux reflux - [facility] disease disease, St unspecifie [facility] d whether Medical esophagiti Center s present Hyperlipid Hyperlipid Problem Active C ommon emia emia [facility] - [facility] [id number] Adenoid Problem Active Commo n basal cell [facility] carcinoma - [facility] ([facility] [id number] Hx of Problem Active Common falling [facility] - [facility] [id number] Type 2 Problem Active Common diabetes [facility] mellitus - [facility] with diabetic [facility] chronic Medical kidney Center disease Lower Benign Problem Active Common urinary prostatic [facility] tract hyperplasi - [facility]I symptoms a with St due to [facility] benign urinary Medical prostatic tract Center hypertroph symptoms, y symptom details unspecifie d [id number] SOB Problem Active Common (shortness Spirit of breath) - [facility] Diabetes Diabetes Problem Active Commo n mellitus mellitus [facility] with with - [facility]I neuropathy neuropathy [facility] [id number] SOB Problem Active Common (shortness [facility] of breath) - [facility] on [facility] Neuropathy Neuropathy Problem Active C ommon [facility] - [facility] 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 cataract, Spi rit unspecifie - CHI d St age-relate [facility] d cataract Medica l type, Center unspecifie d laterality [id number] 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, 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 [id number] Benign Problem Active Common prostatic [facility] hyperplasi - [facility] a without [facility] urinary Medical tract Center symptoms [id number] Primary Problem Active Common insomnia [facility] - [facility] Allergies, Adverse Reactions, Alerts Allergy Allergy Status Severity Reaction(s) Onset Inactive Treating Comm ents Source Name Type Date Date Clinician Codeine DA Active Unknown [facility] Penicill DA Active Unknown [facility] 0 Drug Active Unknown Common allergy [facility] - [facility] codeine codeine Active Unknown Common [facility] - [facility] Social History Social Habit Start Date Stop Date Quantity Comments Source History of Tobacco Use Co mmon [facility] Sex Assigned At Com mon [facility] Smoking Status Start Date Stop Date Source Never Smoker [facility] Medications Ordered Filled Start Stop Current Ordering Indication Dosage Frequency Signature Comments Components Source Medication Medication Date Date Medication? Clinician (SIG) Name Name Fluocinonid Fluocinonid 2020- No 1{appli BID Fluocinoni e 0.05 % e 0.05 % 11-06 cation} de 0.05 % 00:00: 00:00 00 :00 Fluocinonid Fluocinonid 2020- No 1{appli BID Fluocinoni e 0.05 % e 0.05 % 11-06 cation} de 0.05 % 00:00: 00:00 00 :00 Trazodone Trazodone 2019-06 No 1{table QD Trazodone Common HCl 50 MG HCl 50 MG 2-14 t_at_be HCl 50 MG Spirit 00:00: dtime_a - [facility]I 00 s_neede St d} [facility] Trazodone Trazodone 2019-06 No 1{table QD Trazodone Common HCl 50 MG HCl 50 MG 2-14 t_at_be HCl 50 MG [facility] 00:00: [facility]a - [facility] Trazodone 2019-06 No 1{table QD Trazodone HCl 50 MG HCl 50 MG 2-14 t_at_be HCl 50 MG 00:00: dtime_a 00 s_neede d} Trazodone Trazodone 2019-06 No 1{table QD Trazodone HCl 50 MG HCl 50 MG 2-14 t_at_be HCl 50 MG 00:00: dtime_a 00 s_neede d} Trazodone Trazodone 2019-06 No 1{table QD Trazodone HCl 50 MG HCl 50 MG 2-14 t_at_be HCl 50 MG 00:00: dtime_a 00 s_neede d} Trazodone Trazodone 2019-06 No 1{table QD Trazodone HCl 50 MG HCl 50 MG 2-14 t_at_be HCl 50 MG 00:00: dtime_a 00 s_neede d} Trazodone Trazodone 2019- No 1{table QD Trazodone HCl 50 MG HCl 50 MG 2-14 t_at_be HCl 50 MG 00:00: dtime_a 00 s_neede d} Trazodone Trazodone 2019- No 1{table QD Trazodone HCl 50 MG HCl 50 MG 2-14 t_at_be HCl 50 MG 00:00: dtime_a 00 s_neede d} Trazodone Trazodone 2019- No 1{table QD Trazodone HCl 50 MG HCl 50 MG 2-14 t_at_be HCl 50 MG 00:00: dtime_a 00 s_neede d} Trazodone Trazodone 2019- No 1{table QD Trazodone HCl 50 MG HCl 50 MG 2-14 t_at_be HCl 50 MG 00:00: dtime_a 00 s_neede d} Trazodone Trazodone 2019- No 1{table QD Trazodone HCl 50 MG HCl 50 MG 2-14 t_at_be HCl 50 MG 00:00: dtime_a 00 s_neede d} Trazodone Trazodone 2019- No 1{table QD Trazodone HCl 50 MG HCl 50 MG 2-14 t_at_be HCl 50 MG 00:00: dtime_a 00 s_neede d} Trazodone Trazodone 2019- No 1{table QD Trazodone HCl 50 MG HCl 50 MG 2-14 t_at_be HCl 50 MG 00:00: dtime_a 00 s_neede d} Trazodone Trazodone 2019- No 1{table QD Trazodone HCl 50 MG HCl 50 MG 2-14 t_at_be HCl 50 MG 00:00: dtime_a 00 s_neede d} Trazodone Trazodone 2019- No 1{table QD Trazodone HCl 50 MG HCl 50 MG 2-14 t_at_be HCl 50 MG 00:00: dtime_a 00 s_neede d} Trazodone Trazodone 2019-06 No 1{table QD Trazodone HCl 50 MG HCl 50 MG 2-14 t_at_be HCl 50 MG 00:00: dtime_a 00 s_neede d} Trazodone Trazodone 2019-06 No 1{table QD Trazodone HCl 50 MG HCl 50 MG 2-14 t_at_be HCl 50 MG 00:00: dtime_a 00 s_neede d} traZODone traZODone 2019-06 No 1{table QD traZODone HCl 50 MG HCl 50 MG 2-14 t_at_be HCl 50 MG 00:00: dtime_a 00 s_neede d} traZODone traZODone 2019-06 No 1{table QD traZODone HCl 50 MG HCl 50 MG 2-14 t_at_be HCl 50 MG 00:00: dtime_a 00 s_neede d} traZODone traZODone 2019-06 No 1{table QD traZODone HCl 50 MG HCl 50 MG 2-14 t_at_be HCl 50 MG 00:00: dtime_a 00 s_neede d} traZODone traZODone 2019-06 No 1{table QD traZODone HCl 50 MG HCl 50 MG 2-14 t_at_be HCl 50 MG 00:00: dtime_a 00 s_neede d} traZODone traZODone 2019-06 No 1{table QD traZODone HCl 50 MG HCl 50 MG 2-14 t_at_be HCl 50 MG 00:00: dtime_a 00 s_neede d} Trazodone Trazodone 2019-06 No 1{table QD Trazodone HCl 50 MG HCl 50 MG 2-14 t_at_be HCl 50 MG 00:00: dtime_a 00 s_neede d} Tamsulosin Tamsulosin 2019-06- No 1{capsu QD Tamsulosin Common HCl 0.4 MG HCl 0.4 MG 2-14 11-10 le} HCl 0.4 MG Spirit 00:00: 00:00 - [facility]I 00 :00 [facility] Tamsulosin Tamsulosin 2019-06- No 1{capsu QD Tamsulosin Common HCl 0.4 MG HCl 0.4 MG 2-14 06-12 le} HCl 0.4 MG [facility] 00:00: 00:00 - [facility]I 00 :00 [facility] Tamsulosin Tamsulosin 2019-06- No 1{capsu QD Tamsulosin HCl 0.4 MG HCl 0.4 MG 2-14 06-12 le} HCl 0.4 MG 00:00: 00:00 00 :00 Tamsulosin Tamsulosin 2019-06- No 1{capsu QD Tamsulosin HCl 0.4 MG HCl 0.4 MG 2-14 06-12 le} HCl 0.4 MG 00:00: 00:00 00 :00 Tamsulosin Tamsulosin 2019-06- No 1{capsu QD Tamsulosin HCl 0.4 MG HCl 0.4 MG 2-14 06-12 le} HCl 0.4 MG 00:00: 00:00 00 :00 Tamsulosin Tamsulosin 2019-06- No 1{capsu QD Tamsulosin HCl 0.4 MG HCl 0.4 MG 2-14 06-12 le} HCl 0.4 MG 00:00: 00:00 00 :00 Tamsulosin Tamsulosin 2019-06- No 1{capsu QD Tamsulosin HCl 0.4 MG HCl 0.4 MG 2-14 06-12 le} HCl 0.4 MG 00:00: 00:00 00 :00 Tamsulosin Tamsulosin 2019-06- No 1{capsu QD Tamsulosin HCl 0.4 MG HCl 0.4 MG 2-14 06-12 le} HCl 0.4 MG 00:00: 00:00 00 :00 Tamsulosin Tamsulosin 2019-06- No 1{capsu QD Tamsulosin HCl 0.4 MG HCl 0.4 MG 2-14 06-12 le} HCl 0.4 MG 00:00: 00:00 00 :00 Tamsulosin Tamsulosin 2019-06- No 1{capsu QD Tamsulosin HCl 0.4 MG HCl 0.4 MG 2-14 06-12 le} HCl 0.4 MG 00:00: 00:00 00 :00 Tamsulosin Tamsulosin 2019-06- No 1{capsu QD Tamsulosin HCl 0.4 MG HCl 0.4 MG 2-14 06-12 le} HCl 0.4 MG 00:00: 00:00 00 :00 Tamsulosin Tamsulosin 2019-06- No 1{capsu QD Tamsulosin HCl 0.4 MG HCl 0.4 MG 2-14 06-12 le} HCl 0.4 MG 00:00: 00:00 00 :00 Tamsulosin Tamsulosin 2019-06- No 1{capsu QD Tamsulosin HCl 0.4 MG HCl 0.4 MG 2-14 06-12 le} HCl 0.4 MG 00:00: 00:00 00 :00 Tamsulosin Tamsulosin 2019-06- No 1{capsu QD Tamsulosin HCl 0.4 MG HCl 0.4 MG 2-14 06-12 le} HCl 0.4 MG 00:00: 00:00 00 :00 Tamsulosin Tamsulosin 2019-06- No 1{capsu QD Tamsulosin HCl 0.4 MG HCl 0.4 MG 2-14 06-12 le} HCl 0.4 MG 00:00: 00:00 00 :00 Tamsulosin Tamsulosin 2019-06- No 1{capsu QD Tamsulosin HCl 0.4 MG HCl 0.4 MG 2-14 06-12 le} HCl 0.4 MG 00:00: 00:00 00 :00 Tamsulosin Tamsulosin 2019-06- No 1{capsu QD Tamsulosin HCl 0.4 MG HCl 0.4 MG 2-14 06-12 le} HCl 0.4 MG 00:00: 00:00 00 :00 Tamsulosin Tamsulosin 2019-06- No 1{capsu QD Tamsulosin HCl 0.4 MG HCl 0.4 MG 2-14 06-12 le} HCl 0.4 MG 00:00: 00:00 00 :00 Tamsulosin Tamsulosin 2019-06- No 1{capsu QD Tamsulosin HCl 0.4 MG HCl 0.4 MG 2-14 06-12 le} HCl 0.4 MG 00:00: 00:00 00 :00 Aripiprazol Aripiprazol 2019- Yes Na Montgomery 1 tablet Common e e 02-07 00:00: - CHI [facility] Aripiprazol Aripiprazol 2020-0 No 1{table QD Aripiprazo Common e 5 MG e 5 MG 9-09 t} le 5 MG Spirit 00:00: - [facility] 00 [facility] Aripiprazol Aripiprazol 2020-0 No 1{table QD Aripiprazo Common e 5 MG e 5 MG 9-09 t} le 5 MG [facility] 00:00: - [facility]I 00 [facility] Aripiprazol Aripiprazol 2019-0 No 1{table QD Aripiprazo e 5 MG e 5 MG 9-09 t} le 5 MG 00:00: 00 Aripiprazol Aripiprazol 2019-0 No 1{table QD Aripiprazo e 5 MG e 5 MG 9-09 t} le 5 MG 00:00: 00 Aripiprazol Aripiprazol 2019-0 No 1{table QD Aripiprazo e 5 MG e 5 MG 9-09 t} le 5 MG 00:00: 00 Aripiprazol Aripiprazol 2019-0 No 1{table QD Aripiprazo e 5 MG e 5 MG 9-09 t} le 5 MG 00:00: 00 Aripiprazol Aripiprazol 2019-0 No 1{table QD Aripiprazo e 10 MG e 10 MG 9-09 t} le 10 MG 00:00: 00 Aripiprazol Aripiprazol 2019-0 No 1{table QD Aripiprazo e 10 MG e 10 MG 9-09 t} le 10 MG 00:00: 00 Aripiprazol Aripiprazol 2019-0 No 1{table QD Aripiprazo e 10 MG e 10 MG 9-09 t} le 10 MG 00:00: 00 Aripiprazol Aripiprazol 2020-0 No 1{table QD Aripiprazo e 10 MG e 10 MG 9-09 t} le 10 MG 00:00: 00 Aripiprazol Aripiprazol 2020-0 No 1{table QD Aripiprazo e 10 MG e 10 MG 9-09 t} le 10 MG 00:00: 00 Aripiprazol Aripiprazol 2020-0 No 1{table QD Aripiprazo e 10 MG e 10 MG 9-09 t} le 10 MG 00:00: 00 Aripiprazol Aripiprazol 2020-0 No 1{table QD Aripiprazo e 10 MG e 10 MG 02-07 t} le 10 MG 00:00: 00 Aripiprazol Aripiprazol 2019-0 No 1{table QD Aripiprazo e 10 MG e 10 MG 02-07 t} le 10 MG 00:00: 00 Aripiprazol Aripiprazol 2019-0 No 1{table QD Aripiprazo e 5 MG e 5 MG 02-07 t} le 5 MG 00:00: 00 Aripiprazol Aripiprazol 2019-0 No 1{table QD Aripiprazo e 5 MG e 5 MG 02-07 t} le 5 MG 00:00: 00 Pantoprazol Pantoprazol 2019-0 Yes Na Montgoemry 1 tablet Common e Sodium e Sodium 5-29 Spirit 00:00: - [facility]I 00 [facility] Pantoprazol Pantoprazol 2019-0 No 1{table QD Pantoprazo Common e Sodium 40 e Sodium 40 5-29 t} le Sodium Spirit MG MG 00:00: 40 MG - CHI 00 [facility] Pantoprazol Pantoprazol 2019-0 No 1{table QD Pantoprazo Common e Sodium 40 e Sodium 40 5-29 t} le Sodium Spirit MG MG 00:00: 40 MG - CHI 00 [facility] Pantoprazol Pantoprazol 2019-0 No 1{table QD Pantoprazo e Sodium 40 e Sodium 40 5-29 t} le Sodium MG MG 00:00: 40 MG 00 Pantoprazol Pantoprazol 2019-0 No 1{table QD Pantoprazo e Sodium 40 e Sodium 40 5-29 t} le Sodium MG MG 00:00: 40 MG 00 Pantoprazol Pantoprazol 2019-0 No 1{table QD Pantoprazo e Sodium 40 e Sodium 40 5-29 t} le Sodium MG MG 00:00: 40 MG 00 Pantoprazol Pantoprazol 2019-0 No 1{table QD Pantoprazo e Sodium 40 e Sodium 40 5-29 t} le Sodium MG MG 00:00: 40 MG 00 Pantoprazol Pantoprazol 2019-0 No 1{table QD Pantoprazo e Sodium 40 e Sodium 40 5-29 t} le Sodium MG MG 00:00: 40 MG 00 Pantoprazol Pantoprazol 2020-0 No 1{table QD Pantoprazo e Sodium 40 e Sodium 40 5-29 t} le Sodium MG MG 00:00: 40 MG 00 Pantoprazol Pantoprazol 2020-0 No 1{table QD Pantoprazo e Sodium 40 e Sodium 40 5-29 t} le Sodium MG MG 00:00: 40 MG 00 Pantoprazol Pantoprazol 2020-0 No 1{table QD Pantoprazo e Sodium 40 e Sodium 40 5-29 t} le Sodium MG MG 00:00: 40 MG 00 Pantoprazol Pantoprazol 2020-0 No 1{table QD Pantoprazo e Sodium 40 e Sodium 40 5-29 t} le Sodium MG MG 00:00: 40 MG 00 Pantoprazol Pantoprazol 2020-0 No 1{table QD Pantoprazo e Sodium 40 e Sodium 40 5-29 t} le Sodium MG MG 00:00: 40 MG 00 Pantoprazol Pantoprazol 2019-0 No 1{table QD Pantoprazo e Sodium 40 e Sodium 40 5-29 t} le Sodium MG MG 00:00: 40 MG 00 Pantoprazol Pantoprazol 2019-0 No 1{table QD Pantoprazo e Sodium 40 e Sodium 40 5-29 t} le Sodium MG MG 00:00: 40 MG 00 Pantoprazol Pantoprazol 2020-0 No 1{table QD Pantoprazo e Sodium 40 e Sodium 40 5-29 t} le Sodium MG MG 00:00: 40 MG 00 Pantoprazol Pantoprazol 2019-0 No 1{table QD Pantoprazo e Sodium 40 e Sodium 40 5-29 t} le Sodium MG MG 00:00: 40 MG 00 Venlafaxine Venlafaxine 2019- Yes Na Montgomery 1 tablet Common HCl ER HCl ER 1-22 with food Spirit 00:00: - [facility] Venlafaxine Venlafaxine 2019- No 1{table QD Venlafaxin Common HCl ER 150 HCl ER 150 1-22 t_with_ e HCl ER Spirit MG MG 00:00: food} 150 MG - CHI [facility] Venlafaxine Venlafaxine 2019- No 1{table QD Venlafaxin Common HCl ER 150 HCl ER 150 1-22 t_with_ e HCl ER Spirit MG MG 00:00: food} 150 MG - CHI [facility] Venlafaxine Venlafaxine 2018-06 No 1{table QD Venlafaxin HCl ER 150 HCl ER 150 1-22 t_with_ e HCl ER MG MG 00:00: food} 150 MG 00 Venlafaxine Venlafaxine 2018-06 No 1{table QD Venlafaxin HCl ER 150 HCl ER 150 1-22 t_with_ e HCl ER MG MG 00:00: food} 150 MG 00 Venlafaxine Venlafaxine 2018-06 No 1{table QD Venlafaxin HCl ER 150 HCl ER 150 1-22 t_with_ e HCl ER MG MG 00:00: food} 150 MG 00 Venlafaxine Venlafaxine 2018-06 No 1{table QD Venlafaxin HCl ER 150 HCl ER 150 1-22 t_with_ e HCl ER MG MG 00:00: food} 150 MG 00 Venlafaxine Venlafaxine 2018-06 No 1{table QD Venlafaxin HCl ER 150 HCl ER 150 1-22 t_with_ e HCl ER MG MG 00:00: food} 150 MG 00 Venlafaxine Venlafaxine 2018-06 No 1{table QD Venlafaxin HCl ER 150 HCl ER 150 1-22 t_with_ e HCl ER MG MG 00:00: food} 150 MG 00 ProAir HFA ProAir HFA Yes Na Montgomery 2 puffs as Common 7-15 needed Spirit 00:00: - [facility] 00 [facility] ProAir HFA ProAir HFA 2018- No 2{puffs ProAir HFA Common 108 (90 108 (90 7-15 _as_nee 108 (90 Spi rit Base) Base) 00:00: ded} Base) - CHI MCG/ACT MCG/ACT 00 MCG/ACT [facility] ProAir HFA ProAir HFA 2018- No 2{puffs ProAir HFA Common 108 (90 108 (90 7-15 _as_nee 108 (90 Spi rit Base) Base) 00:00: ded} Base) - CHI MCG/ACT MCG/ACT 00 MCG/ACT [facility] ProAir HFA ProAir HFA 2018- No 2{puffs ProAir HFA 108 (90 108 (90 7-15 _as_nee 108 (90 Base) Base) 00:00: ded} Base) MCG/ACT MCG/ACT 00 MCG/ACT ProAir HFA ProAir HFA 2019-0 No 2{puffs ProAir HFA 108 (90 108 (90 7-15 _as_nee 108 (90 Base) Base) 00:00: ded} Base) MCG/ACT MCG/ACT 00 MCG/ACT ProAir HFA ProAir HFA 2019-0 No 2{puffs ProAir HFA 108 (90 108 (90 7-15 _as_nee 108 (90 Base) Base) 00:00: ded} Base) MCG/ACT MCG/ACT 00 MCG/ACT ProAir HFA ProAir HFA 2019-0 No 2{puffs ProAir HFA 108 (90 108 (90 7-15 _as_nee 108 (90 Base) Base) 00:00: ded} Base) MCG/ACT MCG/ACT 00 MCG/ACT ProAir HFA ProAir HFA 2018-0 No 2{puffs ProAir HFA 108 (90 108 (90 7-15 _as_nee 108 (90 Base) Base) 00:00: ded} Base) MCG/ACT MCG/ACT 00 MCG/ACT ProAir HFA ProAir HFA 2018-0 No 2{puffs ProAir HFA 108 (90 108 (90 7-15 _as_nee 108 (90 Base) Base) 00:00: ded} Base) MCG/ACT MCG/ACT 00 MCG/ACT ProAir HFA ProAir HFA 2018-0 No 2{puffs ProAir HFA 108 (90 108 (90 7-15 _as_nee 108 (90 Base) Base) 00:00: ded} Base) MCG/ACT MCG/ACT 00 MCG/ACT ProAir HFA ProAir HFA 2019-0 No 2{puffs ProAir HFA 108 (90 108 (90 7-15 _as_nee 108 (90 Base) Base) 00:00: ded} Base) MCG/ACT MCG/ACT 00 MCG/ACT ProAir HFA ProAir HFA 2019-0 No 2{puffs ProAir HFA 108 (90 108 (90 7-15 _as_nee 108 (90 Base) Base) 00:00: ded} Base) MCG/ACT MCG/ACT 00 MCG/ACT ProAir HFA ProAir HFA 2019-0 No 2{puffs ProAir HFA 108 (90 108 (90 7-15 _as_nee 108 (90 Base) Base) 00:00: ded} Base) MCG/ACT MCG/ACT 00 MCG/ACT ProAir HFA ProAir HFA 0 No 2{puffs ProAir HFA 108 (90 108 (90 7-15 _as_nee 108 (90 Base) Base) 00:00: ded} Base) MCG/ACT MCG/ACT 00 MCG/ACT ProAir HFA ProAir HFA No 2{puffs ProAir HFA 108 (90 108 (90 7-15 _as_nee 108 (90 Base) Base) 00:00: ded} Base) MCG/ACT MCG/ACT 00 MCG/ACT ProAir HFA ProAir HFA No 2{puffs ProAir HFA 108 (90 108 (90 7-15 _as_nee 108 (90 Base) Base) 00:00: ded} Base) MCG/ACT MCG/ACT 00 MCG/ACT ProAir HFA ProAir HFA No 2{puffs ProAir HFA 108 (90 108 (90 7-15 _as_nee 108 (90 Base) Base) 00:00: ded} Base) MCG/ACT MCG/ACT 00 MCG/ACT ProAir HFA ProAir HFA No 2{puffs ProAir HFA 108 (90 108 (90 7-15 _as_nee 108 (90 Base) Base) 00:00: ded} Base) MCG/ACT MCG/ACT 00 MCG/ACT ProAir HFA ProAir HFA 2018- No 2{puffs ProAir HFA 108 (90 108 (90 7-15 _as_nee 108 (90 Base) Base) 00:00: ded} Base) MCG/ACT MCG/ACT 00 MCG/ACT ProAir HFA ProAir HFA 2018-0 No 2{puffs ProAir HFA 108 (90 108 (90 7-15 _as_nee 108 (90 Base) Base) 00:00: ded} Base) MCG/ACT MCG/ACT 00 MCG/ACT ProAir HFA ProAir HFA 2018-0 No 2{puffs ProAir HFA 108 (90 108 (90 7-15 _as_nee 108 (90 Base) Base) 00:00: ded} Base) MCG/ACT MCG/ACT 00 MCG/ACT ProAir HFA ProAir HFA No 2{puffs ProAir HFA 108 (90 108 (90 7-15 _as_nee 108 (90 Base) Base) 00:00: ded} Base) MCG/ACT MCG/ACT 00 MCG/ACT ProAir HFA ProAir HFA No 2{puffs ProAir HFA 108 (90 108 (90 7-15 _as_nee 108 (90 Base) Base) 00:00: ded} Base) MCG/ACT MCG/ACT 00 MCG/ACT ProAir HFA ProAir HFA No 2{puffs ProAir HFA 108 (90 108 (90 7-15 _as_nee 108 (90 Base) Base) 00:00: ded} Base) MCG/ACT MCG/ACT 00 MCG/ACT ProAir HFA ProAir HFA No 2{puffs ProAir HFA 108 (90 108 (90 7-15 _as_nee 108 (90 Base) Base) 00:00: ded} Base) MCG/ACT MCG/ACT 00 MCG/ACT Venlafaxine Venlafaxine Yes Na Montgomery 1 tablet Common HCl ER HCl ER with food [facility] - [facility] MetFORMIN MetFORMIN Yes Na Montgomery Take 1 Common HCl ER HCl ER tablet by Spirit (OSM) (OSM) mouth - [facility] twice [facility] Pravastatin Pravastatin Yes Na Montgomery Take 1 Common Sodium Sodium tablet by Spirit mouth - CHI daily. [facility] Donepezil Donepezil Yes Na Montgomery Take 1 Common HCl HCl tablet by Spirit mouth at - CHI bedtime. [facility] Tradjenta Tradjenta Yes Na Montgomery 1 tablet Common [facility] - [facility] Losartan Losartan Yes Na Montgomery Take 1 Co mmon Potassium Potassium tablet by Spirit mouth - CHI daily. [facility] Tradjenta 5 Tradjenta 5 No 1{table QD Tradjenta MG MG t} 5 MG MetFORMIN MetFORMIN No MetFORMIN Common HCl ER HCl ER HCl ER Spirit (OSM) 1000 (OSM) 1000 (OSM) 1000 - CHI MG MG MG [facility] Pravastatin Pravastatin No Pravastati Common Sodium 40 Sodium 40 n Sodium S pirit MG MG 40 MG [facility] Venlafaxine Venlafaxine No Venlafaxin Common HCl ER 75 HCl ER 75 e HCl ER S pirit MG MG 75 MG [facility] Donepezil Donepezil No Donepezil Common HCl 5 MG HCl 5 MG HCl 5 MG [facility] rit [facility] Losartan Losartan No Losartan Com mon Potassium Potassium Potassium Spirit 50 MG 50 MG 50 MG [facility] Tradjenta 5 Tradjenta 5 No 1{table QD Tradjenta Common MG MG t} [address] [facility] MetFORMIN MetFORMIN No MetFORMIN Common HCl ER HCl ER HCl ER Spirit (OSM) 1000 (OSM) 1000 (OSM) 1000 - [facility] MG MG MG [facility] Pravastatin Pravastatin No Pravastati Common Sodium 40 Sodium 40 n Sodium S pirit MG MG 40 MG [facility] Venlafaxine Venlafaxine No Venlafaxin Common HCl ER 75 HCl ER 75 e HCl ER S pirit MG MG 75 MG [facility] Donepezil Donepezil No Donepezil Common HCl 5 MG HCl 5 MG HCl 5 MG [facility] Losartan Losartan No Losartan Com mon Potassium Potassium Potassium Spirit 50 MG 50 MG 50 MG [facility] Tradjenta 5 Tradjenta 5 No 1{table QD Tradjenta Common MG MG t} [address] [facility] MetFORMIN MetFORMIN No MetFORMIN HCl ER HCl ER HCl ER (OSM) 1000 (OSM) 1000 (OSM) 1000 MG MG MG Pravastatin Pravastatin No Pravastati Sodium 40 Sodium 40 n Sodium MG MG 40 MG Venlafaxine Venlafaxine No Venlafaxin HCl ER 75 HCl ER 75 e HCl ER MG MG 75 MG Tradjenta 5 Tradjenta 5 No 1{table QD Tradjenta MG MG t} 5 MG Losartan Losartan No Losartan Potassium Potassium Potassium 50 MG 50 MG 50 MG Donepezil Donepezil No QD Donepezil HCl 5 MG HCl 5 MG HCl 5 MG Venlafaxine Venlafaxine No QD Venlafaxin HCl ER 75 HCl ER 75 e HCl ER MG MG 75 MG MetFORMIN MetFORMIN No MetFORMIN HCl ER HCl ER HCl ER (OSM) 1000 (OSM) 1000 (OSM) 1000 MG MG MG Pravastatin Pravastatin No Pravastati Sodium 40 Sodium 40 n Sodium MG MG 40 MG Tradjenta 5 Tradjenta 5 No 1{table QD Tradjenta MG MG t} 5 MG Losartan Losartan No Losartan Potassium Potassium Potassium 50 MG 50 MG 50 MG Donepezil Donepezil No QD Donepezil HCl 5 MG HCl 5 MG HCl 5 MG Venlafaxine Venlafaxine No QD Venlafaxin HCl ER 75 HCl ER 75 e HCl ER MG MG 75 MG MetFORMIN MetFORMIN No MetFORMIN HCl ER HCl ER HCl ER (OSM) 1000 (OSM) 1000 (OSM) 1000 MG MG MG Pravastatin Pravastatin No Pravastati Sodium 40 Sodium 40 n Sodium MG MG 40 MG Tradjenta 5 Tradjenta 5 No 1{table QD Tradjenta MG MG t} 5 MG Losartan Losartan No Losartan Potassium Potassium Potassium 50 MG 50 MG 50 MG Donepezil Donepezil No QD Donepezil HCl 5 MG HCl 5 MG HCl 5 MG Venlafaxine Venlafaxine No QD Venlafaxin HCl ER 75 HCl ER 75 e HCl ER MG MG 75 MG MetFORMIN MetFORMIN No MetFORMIN HCl ER HCl ER HCl ER (OSM) 1000 (OSM) 1000 (OSM) 1000 MG MG MG Pravastatin Pravastatin No Pravastati Sodium 40 Sodium 40 n Sodium MG MG 40 MG Tradjenta 5 Tradjenta 5 No 1{table QD Tradjenta MG MG t} 5 MG Losartan Losartan No Losartan Potassium Potassium Potassium 50 MG 50 MG 50 MG Donepezil Donepezil No QD Donepezil HCl 5 MG HCl 5 MG HCl 5 MG Donepezil Donepezil No QD Donepezil HCl 5 MG HCl 5 MG HCl 5 MG MetFORMIN MetFORMIN No MetFORMIN HCl ER HCl ER HCl ER (OSM) 1000 (OSM) 1000 (OSM) 1000 MG MG MG Venlafaxine Venlafaxine No QD Venlafaxin HCl ER 75 HCl ER 75 e HCl ER MG MG 75 MG Losartan Losartan No Losartan Potassium Potassium Potassium 50 MG 50 MG 50 MG Tradjenta 5 Tradjenta 5 No 1{table QD Tradjenta MG MG t} 5 MG Pravastatin Pravastatin No Pravastati Sodium 40 Sodium 40 n Sodium MG MG 40 MG Donepezil Donepezil No QD Donepezil HCl 5 MG HCl 5 MG HCl 5 MG MetFORMIN MetFORMIN No MetFORMIN HCl ER HCl ER HCl ER (OSM) 1000 (OSM) 1000 (OSM) 1000 MG MG MG Venlafaxine Venlafaxine No QD Venlafaxin HCl ER 75 HCl ER 75 e HCl ER MG MG 75 MG Losartan Losartan No Losartan Potassium Potassium Potassium 50 MG 50 MG 50 MG Tradjenta 5 Tradjenta 5 No 1{table QD Tradjenta MG MG t} 5 MG Pravastatin Pravastatin No Pravastati Sodium 40 Sodium 40 n Sodium MG MG 40 MG Donepezil Donepezil No QD Donepezil HCl 5 MG HCl 5 MG HCl 5 MG MetFORMIN MetFORMIN No MetFORMIN HCl ER HCl ER HCl ER (OSM) 1000 (OSM) 1000 (OSM) 1000 MG MG MG Venlafaxine Venlafaxine No QD Venlafaxin HCl ER 75 HCl ER 75 e HCl ER MG MG 75 MG Losartan Losartan No Losartan Potassium Potassium Potassium 50 MG 50 MG 50 MG Tradjenta 5 Tradjenta 5 No 1{table QD Tradjenta MG MG t} 5 MG Pravastatin Pravastatin No Pravastati Sodium 40 Sodium 40 n Sodium MG MG 40 MG Donepezil Donepezil No QD Donepezil HCl 5 MG HCl 5 MG HCl 5 MG MetFORMIN MetFORMIN No MetFORMIN HCl ER HCl ER HCl ER (OSM) 1000 (OSM) 1000 (OSM) 1000 MG MG MG Venlafaxine Venlafaxine No QD Venlafaxin HCl ER 75 HCl ER 75 e HCl ER MG MG 75 MG Losartan Losartan No Losartan Potassium Potassium Potassium 50 MG 50 MG 50 MG Tradjenta 5 Tradjenta 5 No 1{table QD Tradjenta MG MG t} 5 MG Pravastatin Pravastatin No Pravastati Sodium 40 Sodium 40 n Sodium MG MG 40 MG Donepezil Donepezil No QD Donepezil HCl 5 MG HCl 5 MG HCl 5 MG MetFORMIN MetFORMIN No MetFORMIN HCl ER HCl ER HCl ER (OSM) 1000 (OSM) 1000 (OSM) 1000 MG MG MG Venlafaxine Venlafaxine No QD Venlafaxin HCl ER 75 HCl ER 75 e HCl ER MG MG 75 MG Losartan Losartan No Losartan Potassium Potassium Potassium 50 MG 50 MG 50 MG Tradjenta 5 Tradjenta 5 No 1{table QD Tradjenta MG MG t} 5 MG Pravastatin Pravastatin No Pravastati Sodium 40 Sodium 40 n Sodium MG MG 40 MG Donepezil Donepezil No QD Donepezil HCl 5 MG HCl 5 MG HCl 5 MG MetFORMIN MetFORMIN No MetFORMIN HCl ER HCl ER HCl ER (OSM) 1000 (OSM) 1000 (OSM) 1000 MG MG MG Venlafaxine Venlafaxine No QD Venlafaxin HCl ER 75 HCl ER 75 e HCl ER MG MG 75 MG Losartan Losartan No Losartan Potassium Potassium Potassium 50 MG 50 MG 50 MG Tradjenta 5 Tradjenta 5 No 1{table QD Tradjenta MG MG t} 5 MG Pravastatin Pravastatin No Pravastati Sodium 40 Sodium 40 n Sodium MG MG 40 MG Donepezil Donepezil No QD Donepezil HCl 5 MG HCl 5 MG HCl 5 MG Venlafaxine Venlafaxine No QD Venlafaxin HCl ER 75 HCl ER 75 e HCl ER MG MG 75 MG MetFORMIN MetFORMIN No MetFORMIN HCl ER HCl ER HCl ER (OSM) 1000 (OSM) 1000 (OSM) 1000 MG MG MG Losartan Losartan No Losartan Potassium Potassium Potassium 50 MG 50 MG 50 MG Tradjenta 5 Tradjenta 5 No 1{table QD Tradjenta MG MG t} 5 MG Pravastatin Pravastatin No Pravastati Sodium 40 Sodium 40 n Sodium MG MG 40 MG Donepezil Donepezil No QD Donepezil HCl 5 MG HCl 5 MG HCl 5 MG Venlafaxine Venlafaxine No QD Venlafaxin HCl ER 75 HCl ER 75 e HCl ER MG MG 75 MG MetFORMIN MetFORMIN No MetFORMIN HCl ER HCl ER HCl ER (OSM) 1000 (OSM) 1000 (OSM) 1000 MG MG MG Pravastatin Pravastatin No QD Pravastati Sodium 40 Sodium 40 n Sodium MG MG 40 MG Tradjenta 5 Tradjenta 5 No 1{table QD Tradjenta MG MG t} 5 MG Losartan Losartan No QD Losartan Potassium Potassium Potassium 50 MG 50 MG 50 MG Donepezil Donepezil No QD Donepezil HCl 5 MG HCl 5 MG HCl 5 MG Aripiprazol Aripiprazol No 1{table QD Aripiprazo e 10 MG e 10 MG t} le 10 MG Pantoprazol Pantoprazol No 1{table QD Pantoprazo e Sodium 40 e Sodium 40 t} le Sodium MG MG 40 MG Venlafaxine Venlafaxine No QD Venlafaxin HCl ER 75 HCl ER 75 e HCl ER MG MG 75 MG Pravastatin Pravastatin No QD Pravastati Sodium 40 Sodium 40 n Sodium MG MG 40 MG MetFORMIN MetFORMIN No 1{table BID MetFORMIN HCl ER HCl ER t_with_ HCl ER (OSM) 500 (OSM) 500 meals} (OSM) 500 MG MG MG Venlafaxine Venlafaxine No 1{table QD Venlafaxin HCl ER 150 HCl ER 150 t_with_ e HCl ER MG MG food} 150 MG Losartan Losartan No QD Losartan Potassium Potassium Potassium 50 MG 50 MG 50 MG Tradjenta 5 Tradjenta 5 No 1{table QD Tradjenta MG MG t} 5 MG Donepezil Donepezil No QD Donepezil HCl 5 MG HCl 5 MG HCl 5 MG Aripiprazol Aripiprazol No 1{table QD Aripiprazo e 10 MG e 10 MG t} le 10 MG Pantoprazol Pantoprazol No 1{table QD Pantoprazo e Sodium 40 e Sodium 40 t} le Sodium MG MG 40 MG Venlafaxine Venlafaxine No QD Venlafaxin HCl ER 75 HCl ER 75 e HCl ER MG MG 75 MG Pravastatin Pravastatin No QD Pravastati Sodium 40 Sodium 40 n Sodium MG MG 40 MG MetFORMIN MetFORMIN No 1{table BID MetFORMIN HCl ER HCl ER t_with_ HCl ER (OSM) 500 (OSM) 500 meals} (OSM) 500 MG MG MG Venlafaxine Venlafaxine No 1{table QD Venlafaxin HCl ER 150 HCl ER 150 t_with_ e HCl ER MG MG food} 150 MG Losartan Losartan No QD Losartan Potassium Potassium Potassium 50 MG 50 MG 50 MG Tradjenta 5 Tradjenta 5 No 1{table QD Tradjenta MG MG t} 5 MG Venlafaxine Venlafaxine No QD Venlafaxin HCl ER 75 HCl ER 75 e HCl ER MG MG 75 MG Venlafaxine Venlafaxine No 1{table QD Venlafaxin HCl ER 150 HCl ER 150 t_with_ e HCl ER MG MG food} 150 MG Pravastatin Pravastatin No QD Pravastati Sodium 40 Sodium 40 n Sodium MG MG 40 MG MetFORMIN MetFORMIN No 1{table BID MetFORMIN HCl ER HCl ER t_with_ HCl ER (OSM) 500 (OSM) 500 meals} (OSM) 500 MG MG MG Losartan Losartan No QD Losartan Potassium Potassium Potassium 50 MG 50 MG 50 MG Pantoprazol Pantoprazol No 1{table QD Pantoprazo e Sodium 40 e Sodium 40 t} le Sodium MG MG 40 MG Donepezil Donepezil No QD Donepezil HCl 5 MG HCl 5 MG HCl 5 MG Tradjenta 5 Tradjenta 5 No 1{table QD Tradjenta MG MG t} 5 MG Aripiprazol Aripiprazol No 1{table QD Aripiprazo e 10 MG e 10 MG t} le 10 MG ARIPiprazol ARIPiprazol No 1{table QD ARIPiprazo e 10 MG e 10 MG t} le 10 MG Venlafaxine Venlafaxine No QD Venlafaxin HCl ER 75 HCl ER 75 e HCl ER MG MG 75 MG metFORMIN metFORMIN No 1{table BID metFORMIN HCl ER HCl ER t_with_ HCl ER (OSM) 500 (OSM) 500 meals} (OSM) 500 MG MG MG Pravastatin Pravastatin No QD Pravastati Sodium 40 Sodium 40 n Sodium MG MG 40 MG Donepezil Donepezil No QD Donepezil HCl 5 MG HCl 5 MG HCl 5 MG Losartan Losartan No QD Losartan Potassium Potassium Potassium 50 MG 50 MG 50 MG Tradjenta 5 Tradjenta 5 No 1{table QD Tradjenta MG MG t} 5 MG Venlafaxine Venlafaxine No 1{table QD Venlafaxin HCl ER 150 HCl ER 150 t_with_ e HCl ER MG MG food} 150 MG Pantoprazol Pantoprazol No 1{table QD Pantoprazo e Sodium 40 e Sodium 40 t} le Sodium MG MG 40 MG Venlafaxine Venlafaxine No 1{table QD Venlafaxin HCl ER 150 HCl ER 150 t_with_ e HCl ER MG MG food} 150 MG Venlafaxine Venlafaxine No QD Venlafaxin HCl ER 75 HCl ER 75 e HCl ER MG MG 75 MG Pravastatin Pravastatin No QD Pravastati Sodium 40 Sodium 40 n Sodium MG MG 40 MG Donepezil Donepezil No QD Donepezil HCl 5 MG HCl 5 MG HCl 5 MG Losartan Losartan No QD Losartan Potassium Potassium Potassium 50 MG 50 MG 50 MG Pantoprazol Pantoprazol No 1{table QD Pantoprazo e Sodium 40 e Sodium 40 t} le Sodium MG MG 40 MG metFORMIN metFORMIN No 1{table BID metFORMIN HCl ER HCl ER t_with_ HCl ER (OSM) 500 (OSM) 500 meals} (OSM) 500 MG MG MG ARIPiprazol ARIPiprazol No 1{table QD ARIPiprazo e 10 MG e 10 MG t} le 10 MG Tradjenta 5 Tradjenta 5 No 1{table QD Tradjenta MG MG t} 5 MG Venlafaxine Venlafaxine No 1{table QD Venlafaxin HCl ER 150 HCl ER 150 t_with_ e HCl ER MG MG food} 150 MG Tradjenta 5 Tradjenta 5 No 1{table QD Tradjenta MG MG t} 5 MG metFORMIN metFORMIN No 1{table BID metFORMIN HCl ER HCl ER t_with_ HCl ER (OSM) 500 (OSM) 500 meals} (OSM) 500 MG MG MG metFORMIN metFORMIN No metFORMIN HCl ER HCl ER HCl ER (OSM) 1000 (OSM) 1000 (OSM) 1000 MG MG MG Donepezil Donepezil No QD Donepezil HCl 5 MG HCl 5 MG HCl 5 MG Venlafaxine Venlafaxine No QD Venlafaxin HCl ER 75 HCl ER 75 e HCl ER MG MG 75 MG Pravastatin Pravastatin No QD Pravastati Sodium 40 Sodium 40 n Sodium MG MG 40 MG Pantoprazol Pantoprazol No 1{table QD Pantoprazo e Sodium 40 e Sodium 40 t} le Sodium MG MG 40 MG ARIPiprazol ARIPiprazol No 1{table QD ARIPiprazo e 10 MG e 10 MG t} le 10 MG Losartan Losartan No QD Losartan Potassium Potassium Potassium 50 MG 50 MG 50 MG Venlafaxine Venlafaxine No 1{table QD Venlafaxin HCl ER 150 HCl ER 150 t_with_ e HCl ER MG MG food} 150 MG Tradjenta 5 Tradjenta 5 No 1{table QD Tradjenta MG MG t} 5 MG metFORMIN metFORMIN No 1{table BID metFORMIN HCl ER HCl ER t_with_ HCl ER (OSM) 500 (OSM) 500 meals} (OSM) 500 MG MG MG metFORMIN metFORMIN No metFORMIN HCl ER HCl ER HCl ER (OSM) 1000 (OSM) 1000 (OSM) 1000 MG MG MG Donepezil Donepezil No QD Donepezil HCl 5 MG HCl 5 MG HCl 5 MG Venlafaxine Venlafaxine No QD Venlafaxin HCl ER 75 HCl ER 75 e HCl ER MG MG 75 MG Pravastatin Pravastatin No QD Pravastati Sodium 40 Sodium 40 n Sodium MG MG 40 MG Pantoprazol Pantoprazol No 1{table QD Pantoprazo e Sodium 40 e Sodium 40 t} le Sodium MG MG 40 MG ARIPiprazol ARIPiprazol No 1{table QD ARIPiprazo e 10 MG e 10 MG t} le 10 MG Losartan Losartan No QD Losartan Potassium Potassium Potassium 50 MG 50 MG 50 MG Venlafaxine Venlafaxine No 1{table QD Venlafaxin HCl ER 150 HCl ER 150 t_with_ e HCl ER MG MG food} 150 MG Tradjenta 5 Tradjenta 5 No 1{table QD Tradjenta MG MG t} 5 MG metFORMIN metFORMIN No 1{table BID metFORMIN HCl ER HCl ER t_with_ HCl ER (OSM) 500 (OSM) 500 meals} (OSM) 500 MG MG MG metFORMIN metFORMIN No metFORMIN HCl ER HCl ER HCl ER (OSM) 1000 (OSM) 1000 (OSM) 1000 MG MG MG Donepezil Donepezil No QD Donepezil HCl 5 MG HCl 5 MG HCl 5 MG Venlafaxine Venlafaxine No QD Venlafaxin HCl ER 75 HCl ER 75 e HCl ER MG MG 75 MG Pravastatin Pravastatin No QD Pravastati Sodium 40 Sodium 40 n Sodium MG MG 40 MG Pantoprazol Pantoprazol No 1{table QD Pantoprazo e Sodium 40 e Sodium 40 t} le Sodium MG MG 40 MG ARIPiprazol ARIPiprazol No 1{table QD ARIPiprazo e 10 MG e 10 MG t} le 10 MG Losartan Losartan No QD Losartan Potassium Potassium Potassium 50 MG 50 MG 50 MG Tradjenta 5 Tradjenta 5 No 1{table QD Tradjenta MG MG t} 5 MG MetFORMIN MetFORMIN No MetFORMIN HCl ER HCl ER HCl ER (OSM) 1000 (OSM) 1000 (OSM) 1000 MG MG MG Losartan Losartan No Losartan Potassium Potassium Potassium 50 MG 50 MG 50 MG Pravastatin Pravastatin No Pravastati Sodium 40 Sodium 40 n Sodium MG MG 40 MG Venlafaxine Venlafaxine No 1{table QD Venlafaxin HCl ER 75 HCl ER 75 t_with_ e HCl ER MG MG food} 75 MG Donepezil Donepezil No Donepezil HCl 5 MG HCl 5 MG HCl 5 MG MetFORMIN MetFORMIN No MetFORMIN HCl ER HCl ER HCl ER (OSM) 1000 (OSM) 1000 (OSM) 1000 MG MG MG Pravastatin Pravastatin No Pravastati Sodium 40 Sodium 40 n Sodium MG MG 40 MG Venlafaxine Venlafaxine No Venlafaxin HCl ER 75 HCl ER 75 e HCl ER MG MG 75 MG Donepezil Donepezil No Donepezil HCl 5 MG HCl 5 MG HCl 5 MG Losartan Losartan No Losartan Potassium Potassium Potassium 50 MG 50 MG 50 MG Immunizations Ordered Immunization Filled Immunization Date Status Commen ts Source Name Name Flucelvax - Flucelvax - 2019-04-21 Completed [facility] multidose vial 15:00:00 - [facility] Flucelvax - Flucelvax - 2019-04-21 Completed [facility] multidose vial multidose vial 15:00:00 - [facility] Flucelvax - Flucelvax - 2019-04-21 Completed [facility] multidose vial multidose vial 15:00:00 - [facility] Flucelvax - Flucelvax - 2019-04-21 Completed [facility] multidose vial multidose vial 15:00:00 - [facility] Flucelvax - Flucelvax - 2019-04-21 Completed [facility] multidose vial multidose vial 15:00:00 - [facility] Flucelvax - Flucelvax - 2019-04-21 Completed [facility] multidose vial multidose vial 15:00:00 - [facility] Flucelvax - Flucelvax - 2019-04-21 Completed [facility] multidose vial multidose vial 15:00:00 - [facility] Flucelvax - Flucelvax - 2019-04-21 Completed [facility] multidose vial multidose vial 15:00:00 - [facility] Flucelvax - Flucelvax - 2019-04-21 Completed [facility] multidose vial multidose vial 15:00:00 - [facility] Flucelvax - Flucelvax - 2019-04-21 Completed [facility] multidose vial multidose vial 15:00:00 - [facility] Flucelvax - Flucelvax - 2019-04-21 Completed [facility] multidose vial multidose vial 15:00:00 - [facility] Flucelvax - Flucelvax - 2019-04-21 Completed [facility] multidose vial multidose vial 15:00:00 - [facility] Flucelvax - Flucelvax - 2019-04-21 Completed [facility] multidose vial multidose vial 15:00:00 - [facility] Flucelvax - Flucelvax - 2019-04-21 Completed [facility] multidose vial multidose vial 15:00:00 - [facility] Flucelvax - Flucelvax - 2019-04-21 Completed [facility] multidose vial multidose vial 15:00:00 - [facility] Flucelvax - Flucelvax - 2019-04-21 Completed [facility] multidose vial multidose vial 15:00:00 - [facility] Flucelvax - Flucelvax - 2019-04-21 Completed [facility] multidose vial multidose vial 15:00:00 - [facility] Flucelvax - Flucelvax - 2019-04-21 Completed [facility] multidose vial multidose vial 15:00:00 - [facility] Flucelvax - Flucelvax - 2019-04-21 Completed [facility] multidose vial multidose vial 15:00:00 - [facility] Flucelvax - Flucelvax - 2019-04-21 Completed [facility] multidose vial multidose vial 15:00:00 - [facility] Flucelvax - Flucelvax - 2019-04-21 Completed [facility] multidose vial multidose vial 15:00:00 - [facility] Flucelvax - Flucelvax - 2019-04-21 Completed [facility] multidose vial multidose vial 15:00:00 - [facility] Flucelvax - Flucelvax - 2019-04-21 Completed [facility] multidose vial multidose vial 15:00:00 - [facility] Flucelvax - Flucelvax - 2019-04-21 Completed [facility] multidose vial multidose vial 15:00:00 [place] [facility] Vital Signs Vital Name Observation Time Observation Value Comments Source Weight 2021-02-25 14:32:00 68.22 KG Weight 2021-02-18 07:00:00 67.94 KG Weight 2021-02-11 07:00:00 71.48 KG Height 2021-02-09 15:07:00 182.88 CM Weight 2021-02-09 15:07:00 68.03 KG height 2020-09-04 13:00:00 71 [in_i] [facility] weight 2020-09-04 13:00:00 159.6 [lb_av] [facility] temperature 2020-09-04 13:00:00 97.8 [degF] [facility] bmi 2020-09-04 13:00:00 22.26 kg/m2 [facility] oximetry 2020-09-04 13:00:00 98 % [facility] respiratory rate 2020-09-04 13:00:00 16 /min [facility] on [facility] blood pressure 2020-09-04 13:00:00 135 mm[Hg] [facility] systolic [facility] blood pressure 2020-09-04 13:00:00 60 mm[Hg] [facility] diastolic [facility] Procedures This patient has no known procedures. Encounters Start End Encounter Admission Attending Care Care Encounter Source Date/Time Date/Time Type Type Clinicians Facility Department ID [id number] 12:44:[id number] [facility] 2021-06-[facility] [id number] 2 Common 12:16:[id number] [facility] 2021-06-26 Outpatient [place], Na STLMLC STLMLC [id number] 2 Common 12:14:[id number] [facility] 2021-06-26 Outpatient [place], Na STLMLC STLMLC [id number] 2 Common 12:13:[id number] [facility] 2021-06-26 Outpatient [place], Na STLMLC STLMLC [id number] 2 Common 11:59:[id number] [facility] 2021-06-26 Outpatient [place], Na STLMLC STLMLC [id number] 2 Common 11:58:[id number] [facility] 2021-06-26 Outpatient [place], Na STLMLC STLMLC [id number] 2 Common 11:44:[id number] [facility] 2021-06-26 Outpatient [place], Na STLMLC STLMLC [id number] 2 Common 11:11:[id number] [facility] 2021-06-26 Outpatient Montgomery, Na STLMLC STLMLC [id number] 2 Common 11:06:[id number] [facility] 2021-06-26 Outpatient [place], Na STLMLC STLMLC [id number] 2 Common 11:06:[id number] [facility] 2021-06-26 Outpatient [place], Na STLMLC STLMLC [id number] 2 Common 11:05:[id number] [facility] 2021-03-18 2021-03-18 (TEL) STLMLC STLMLC [id number] [facility] 00:00:00 00:00:00 [facility] 2021-02-09 2021-02-25 Inpatient E BRAMS, [facility] [id number] 15:07:00 14:45:00 [facility] 2021-02-06 2021-02-06 (TEL) STLMLC STLMLC [id number] Co m[facility] 00:00:00 00:00:00 [facility] 2020-12-28 2020-12-28 (TEL) STLMLC STLMLC [id number] [facility] 00:00:00 00:00:00 [facility] 2020-11-19 2020-11-19 (TEL) STLMLC STLMLC [id number] [facility] 00:00:00 00:00:00 [facility] 2020-11-06 2020-11-06 (TEL) STLMLC STLMLC [id number] [facility] 00:00:00 00:00:00 [facility] 2020-10-09 2020-10-09 (TEL) STLMLC STLMLC [id number] [facility] 00:00:00 00:00:00 [facility] 2020-09-06 2020-09-06 (TEL) STLMLC STLMLC [id number] [facility] 00:00:00 00:00:00 [facility] 2020-09-04 2020-09-04 OFFICE STLMLC STLMLC [id number] Co [facility] 00:00:00 00:00:[address] [facility] 4 [facility] 2020-08-20 2020-08-20 (TEL) STLMLC STLMLC [id number] Co mmon 00:00:00 00:00:00 [facility] 2020-08-10 2020-08-10 (TEL) STLMLC STLMLC [id number] [facility] 00:00:00 00:00:00 [facility] 2020-08-07 2020-08-07 (TEL) STLMLC STLMLC [id number] Co m[facility] 00:00:00 00:00:00 [facility] 2020-08-07 2020-08-07 (TEL) STLMLC STLMLC [id number] Co mmon 00:00:00 00:00:00 [facility] 2020-08-07 2020-08-07 (TEL) STLMLC STLMLC [id number] Co m[facility] 00:00:00 00:00:00 [facility] 2020-08-07 2020-08-07 (TEL) STLMLC STLMLC [id number] Co mmon 00:00:00 00:00:00 [facility] 2020-08-06 2020-08-06 (TEL) STLMLC STLMLC [id number] Co mmon 00:00:00 00:00:00 [facility] 2020-08-06 2020-08-06 OL DIG E/M STLMLC STLMLC [id number] Common 00:00:00 00:00:00 SVC 21+ [facility] 2020-07-27 2020-07-27 (TEL) STLMLC STLMLC [id number] Co mmon 00:00:00 00:00:00 [facility] 2020-07-26 2020-07-26 (TEL) STLMLC STLMLC [id number] Co mmon 00:00:00 00:00:00 [facility] 2020-07-10 2020-07-10 (TEL) STLMLC STLMLC [id number] Co m[facility] 00:00:00 00:00:00 [facility] 2020-05-22 2020-05-22 (TEL) STLMLC STLMLC [id number] Co mmon 00:00:00 00:00:00 [facility] 2020-05-16 2020-05-16 (TEL) STLMLC STLMLC [id number] Co mmon 00:00:00 00:00:00 [facility] 2020-05-14 2020-05-14 (TEL) STLMLC STLMLC [id number] Co mmon 00:00:00 00:00:00 [facility] 2020-05-14 2020-05-14 OFFICE STLMLC STLMLC [id number] Co mmon 00:00:00 00:00:00 VISIT [facility] LEVEL 4 [facility] 2020-03-23 2020-03-23 (TEL) STLMLC STLMLC [id number] Co mmon 00:00:00 00:00:00 [facility] 2020-02-08 2020-02-08 [id number] Common 11:20:00 11:20:00 [place] [address] [facility] 2020-01-28 2020-01-28 [facility] [id number] Common 17:16:00 17:16:[address] [facility] 2019-10-28 2019-10-28 [facility] [id number] Common 09:40:00 09:40:00 [place] [facility] [employer] [address] [facility] 2019-09-12 2019-09-12 [facility] [id number] Common 15:36:00 15:36:00 [facility] [place] [facility] [employer] [address] [facility] 2019-07-08 2019-07-08 [id number] Common 14:00:00 14:00:[address] [facility] Results Test Description Test Time Test Comments Results Result Comments Source GLUCOMETER GLUCOSE- LAB USE ONLY 2021-02-25 11:03:00 Test Item Value Reference Range Interpretation Comme nts GLUCOMETER (test code = GMG) 218 mg/dL 70-100 H Meter ID: [id number]: 8413 MARILU HERNANDEZ GLUCOMETER GLUCOSE- LAB USE [id number] 07:22:00 Test Item Value Reference Range Interpretation Comments GLUCOMETER (test code = 93 mg/dL 70-100 GARETH DIONNE METERMeter ID: GMG) [id number] tor: [address] [facility] H GLUCOMETER GLUCOSE- LAB USE [id number] 20:11:00 Test Item Value Reference Range Interpretation Comments GLUCOMETER (test 151 mg/dL 70-100 H Result Not code = GMG) ConfirmedMeter ID: [id number] tor: 8031 REI GRESHAMGA GLUCOMETER GLUCOSE- LAB USE [id number] 16:31:00 Test Item Value Reference Range Interpretation Comments GLUCOMETER (test code = 72 mg/dL 70-100 GARETH DIONNE METERMeter ID: [id number]) [id number] tor: 39[address] [facility]REE GLUCOMETER GLUCOSE- LAB USE [id number] 11:53:00 Test Item Value Reference Range Interpretation Comments GLUCOMETER (test code = 156 mg/dL 70-100 H Mete r ID: GMG) [id number] tor: 3912 [facility] GLUCOMETER GLUCOSE- LAB USE [id number] 07:23:00 Test Item Value Reference Range Interpretation Comments GLUCOMETER (test 100 mg/dL 70-100 CLEANED MET ERDAILY code = GMG) MAINTENANCEMete r ID: [id number] tor: 4612 [place] GLUCOMETER GLUCOSE- LAB USE [id number] 19:56:00 Test Item Value Reference Range Interpretation Comments GLUCOMETER (test code 144 mg/dL 70-100 H CLEANE D METERMeter ID: = GMG) [id number] tor: 3549 [place]BAR GRE[place] GLUCOMETER GLUCOSE- LAB USE [id number] 16:44:00 Test Item Value Reference Range Interpretation Comments GLUCOMETER (test code 134 mg/dL 70-100 H CLEANE D METERMeter ID: = GMG) [id number] tor: 9379 JASSI BASSAmilcar IEWHITE GLUCOMETER GLUCOSE- LAB USE [id number] 12:13:00 Test Item Value Reference Range Interpretation Comments GLUCOMETER (test code 108 mg/dL 70-100 H CLEANE D METERMeter ID: = GMG) [id number] tor: 3912 [facility] CANDELARIO GLUCOMETER GLUCOSE- LAB USE [id number] 07:01:00 Test Item Value Reference Range Interpretation Comments GLUCOMETER (test code = 87 mg/dL 70-100 GARETH DIONNE METERMeter ID: GMG) [id number] tor: 9867 SHASHANK G ENTILE GLUCOMETER GLUCOSE- LAB USE [id number] 19:34:00 Test Item Value Reference Range Interpretation Comments GLUCOMETER (test code 164 mg/dL 70-100 H CLEANE D METERMeter ID: = GMG) [id number] tor: 6497 ERIC K EHINDE GLUCOMETER GLUCOSE- LAB USE [id number] 16:24:00 Test Item Value Reference Range Interpretation Comments GLUCOMETER (test code = 109 mg/dL 70-100 H Mete r ID: GMG) [id number] tor: 1555 ARLEEN S IMMONS GLUCOMETER GLUCOSE- LAB USE [id number] 11:53:00 Test Item Value Reference Range Interpretation Comments GLUCOMETER (test code 185 mg/dL 70-100 H CLEANE D METERMeter ID: = GMG) [id number] tor: 9379 JASSI CUADRA IEWHITE GLUCOMETER GLUCOSE- LAB USE [id number] 07:33:00 Test Item Value Reference Range Interpretation Comments GLUCOMETER (test code = 90 mg/dL 70-100 Mete r ID: GMG) [id number] tor: 3912 [facility] CANDELARIO GLUCOMETER GLUCOSE- LAB USE [id number] 19:21:00 Test Item Value Reference Range Interpretation Comments GLUCOMETER (test code 203 mg/dL 70-100 H CLEANE D METERMeter ID: = GMG) [id number] tor: 6497 [facility] EHINDE GLUCOMETER GLUCOSE- LAB USE [id number] 16:28:00 Test Item Value Reference Range Interpretation Comments GLUCOMETER (test code 202 mg/dL 70-100 H CLEANE D METERMeter ID: = GMG) [id number] tor: 3912 [facility] CANDELARIO GLUCOMETER GLUCOSE- LAB USE [id number] 11:48:00 Test Item Value Reference Range Interpretation Comments GLUCOMETER (test code 136 mg/dL 70-100 H CLEANE D METERMeter ID: = GMG) [id number] tor: 3912 [facility] CANDELARIO GLUCOMETER GLUCOSE- LAB USE [id number] 07:27:00 Test Item Value Reference Range Interpretation Comments GLUCOMETER (test code = 78 mg/dL 70-100 GARETH DIONNE METERMeter ID: GMG) [id number] tor: 8280 COLLINS TRINY ON GLUCOMETER GLUCOSE- LAB USE [id number] 19:17:00 Test Item Value Reference Range Interpretation Comments GLUCOMETER (test code 104 mg/dL 70-100 H CLEANE D METERMeter ID: = GMG) [id number] tor: 29866 WYCLIFFE KOGAMBI GLUCOMETER GLUCOSE- LAB USE [id number] 16:16:00 Test Item Value Reference Range Interpretation Comments GLUCOMETER (test code 107 mg/dL 70-100 H CLEANE D METERMeter ID: = GMG) [id number] tor: 8280 COLLINS AGOSTO LTON GLUCOMETER GLUCOSE- LAB USE [id number] 11:50:00 Test Item Value Reference Range Interpretation Comments GLUCOMETER (test code 206 mg/dL 70-100 H CLEANE D METERMeter ID: = GMG) [id number] tor: 8280 COLLINS AGOSTO LTON GLUCOMETER GLUCOSE- LAB USE [id number] 07:26:00 Test Item Value Reference Range Interpretation Comments GLUCOMETER (test code = 80 mg/dL 70-100 Mete r ID: GMG) [id number] tor: 6680 GUMARO GADSDEN GLUCOMETER GLUCOSE- LAB USE [id number] 19:20:00 Test Item Value Reference Range Interpretation Comments GLUCOMETER (test code = 171 mg/dL 70-100 H Mete r ID: GMG) [id number] tor: 8031 REI ACOSTA IBIANGA GLUCOMETER GLUCOSE- LAB USE [id number] 16:06:00 Test Item Value Reference Range Interpretation Comments GLUCOMETER (test code 152 mg/dL 70-100 H Meter ID: = GMG) [id number] tor: 9379 JASSI SATT IEWHITE URINALYSIS WITH [id number] 11:25:00 Test Item Value Reference Range Interpretation Comments COLOR (test code = COLU) DK YELLOW YELLOW A CLARITY (test code = CLA) CLEAR CLEAR GLUCOSE UR (test code = UA GLUCOSE) TRACE NEGATIVE A BILI UR (test code = BILE) NEGATIVE NEGATIVE KETONES UR (test code = MATY) NEGATIVE NEGATIVE SP GRAVITY (test code = SPGR) 1.026 1.005-1.030 PH UR (test code = PH) 5.5 4.5-8.0 PROTEIN UR (test code = PU) TRACE NEGATIVE A UROBIL UR (test code = UROQ) 1.0 EU/dL 0.2-1.0 NITRITE UR (test code = NITRITE) NEGATIVE NEGATIVE BLOOD UR (test code = UA BLOOD) NEGATIVE NEGATIVE LEUK ES UR (test code = LEUK) NEGATIVE NEGATIVE WBC UR (test code = UWBC) 1 /HPF 0-3 RBC UR (test code = URBC) 0 /HPF 0-2 EPITH UR (test code = UEPC) FEW /LPF NONE A BACTERIA UR (test code = UBACT) NONE /HPF NONE CAST UR (test code = CAST) /LPF NONE CRYSTAL UR (test code = CRYU) / LPF NONE MUCUS UR (test code = MUC) / HPF NONE AMORPH UR (test code = JOSÉ MIGUEL) / HPF NONE TRICH UR (test code = UTRICH) /HPF NONE YEAST UR (test code = UY) /HPF NONE SPERM UR (test code = USPERM) /HPF NONE GLUCOMETER GLUCOSE- LAB USE [id number] 10:52:00 Test Item Value Reference Range Interpretation Comments GLUCOMETER (test code 150 mg/dL 70-100 H Meter ID: = GMG) [id number] tor: 9379 [facility] [id number] 07:27:00 Test Item Value Reference Range Interpretation Comments GLUCOSE (test code 93 mg/dL 75-100 = 06D) SODIUM (test code 141 mmol/L 136-145 = 01A) POTASSIUM (test 3.9 mmol/L 3.6-5.1 code = 01B) CHLORIDE (test 104 mmol/L 98-107 code = 04A) CO2 (test code = 31 mmol/L 22-32 02A) ANION GAP (test 9.9 mmol/L code = ANG) BUN (test code = 19 mg/dL 7-18 H 05D) CREATININE (test 1.0 mg/dL 0.7-1.3 code = 03E) GFR (test code = 66 See_Comment L [Automated GFR) mL/min/1.73m\S\2 message] Th e system which generated this result transmit varun reference range : >=90. The reference range was not used to interpret this result as normal/abnormal . GFR 77 See_Comment L [Automated MALAGASY (test mL/min/1.73m\S\2 message] The code = GFRAA) system which generated this result transmit varun reference range : >=90. The reference range was not used to interpret this result as normal/abnormal . EGFR (test code = eGFR BY EGFR) CKD-EPI CALCULATION IS NOT RECOMMENDED FOR PATIENTS UNDER 18 YEARS OF AGE. BUN/CREA (test 18 12-20 code = BCR) CALCIUM (test code 9.5 mg/dL 8.3-9.5 = 09D) BILI TOTAL (test 0.8 mg/dL 0.2-1.0 code = 11A) PROTEIN (test code 6.8 g/dL 6.4-8.2 = 07D) ALBUMIN (test code 2.8 g/dL 3.5-4.8 L = 08D) GLOBULIN (test 4.0 g/dL 1.5-3.8 H code = GLB) ALB/GLOB (test 0.7 1.0-2.6 L code = AGRR) ALK PHOS (test 79 IU/L 42-121 code = 35A) AST (test code = 13 IU/L See_Comment [Automated 30A) message] The system which generated this result transmit varun reference range : <=42. The reference range was not used to interpret this result as normal/abnormal . ALT (test code = 18 IU/L See_Comment [Automated 31A) message] The system which generated this result transmit varun reference range : <=78. The reference range was not used to interpret this result as normal/abnormal . GLUCOMETER GLUCOSE- LAB USE [id number] 07:09:00 Test Item Value Reference Range Interpretation Comments GLUCOMETER (test code = 94 mg/dL 70-100 GARETH TRUONG METERMeter ID: GMG) [id number] tor: 9867 SHASHANK SWENSON CBC (INCLUDES AUTOMATED DIFFERENTIAL)2021-02-19 07:03:00 Test Item Value Reference Range Interpretation Comments WBC (test code = WBC) 12.8 10\S\3/uL 4.5-11.0 H RBC (test code = RBC) 3.63 10\S\6/uL 3.80-5.80 L HGB (test code = HBG) 10.9 g/dL 14.0-18.0 L HCT (test code = HCT) 32.5 % 35.0-46.0 L MCV (test code = MCV) 89.5 fL 80.0-94.0 MCH (test code = MCH) 30.0 pg 27.0-31.0 MCHC (test code = MCHC) 33.5 g/dL 32.0-36.0 RDW (test code = RDW) 13.8 % 11.5-14.5 PLT (test code = PLT) 260 10\S\3/uL 130-400 MPV (test code = MPV) 9.7 fL 9.4-12.4 NEUTROP # (test code = NE#) 9.4 10\S\3/uL 2.0-8.0 H LYMPH # (test code = LY#) 1.8 10\S\3/uL 1.2-4.0 MONOCYTE # (test code = MO#) 1.3 10\S\3/uL 0.0-1.1 H EOSINOPH # (test code = EO#) 0.2 10\S\3/uL 0.0-0.7 BASOPHIL # (test code = BA#) 0.0 10\S\3/uL 0.0-0.3 IG # (test code = IG#) 0.07 10\S\3/uL 0.00-0.06 H NRBC # (test code = NRBC#) 0.00 10\S\3/uL 0.00-0.01 NEUTROPH % (test code = NE%) 73.9 % 35.0-73.0 H LYMPH % (test code = LY%) 13.7 % 20.0-55.0 L MONO % (test code = MO%) 10.3 % 2.5-10.0 H EOSINOPH % (test code = EO%) 1.3 % 0.0-5.0 BASOPHIL % (test code = BA%) 0.3 % 0.0-2.0 IG % (test code = IG%) 0.5 % 0.0-0.8 NRBC% (test code = NRBC%) 0.0 % 0.0-0.2 MANDIFF (test code = MDIFF) NO NO RBC MORPH (test code = RBCMOR) NORMAL SARS-CoV (RAPID ANTIGEN)2021-02-19 05:10:00 Test Item Value Reference Range Interpretation Comments SARS-CoV (ANTIGEN) NEGATIVE NEGATIVE (test code = COVAG) COVID AG (test This test has been code = COVAGC) marketed under the FDA Emergency Use Authorization (EUA) to meet challenges of the COVID-19 pandemic. The validation standards normally enforced by the FDA and the [employer] of the [employer] (CAP) are more stringent than those required for this test. Therefore, the result should be interpreted with caution and close attention to other clinical and epidemiological data GLUCOMETER GLUCOSE- LAB USE [id number] 19:28:00 Test Item Value Reference Range Interpretation Comments GLUCOMETER (test code 114 mg/dL 70-100 H CLEANE D METERMeter ID: = GMG) [id number] tor: 8413 MARILU FOREMAN LL GLUCOMETER GLUCOSE- LAB USE [id number] 17:07:00 Test Item Value Reference Range Interpretation Comments GLUCOMETER (test 174 mg/dL 70-100 H Result Not code = GMG) ConfirmedMeter ID: [id number] tor: 1986 MAGGIE IRAIDA GLUCOMETER GLUCOSE- LAB USE [id number] 15:55:00 Test Item Value Reference Range Interpretation Comments GLUCOMETER (test code 176 mg/dL 70-100 H Meter ID: = GMG) [id number] tor: 9379 JASSI SAT IEWHITE GLUCOMETER GLUCOSE- LAB USE [id number] 11:16:00 Test Item Value Reference Range Interpretation Comments GLUCOMETER (test 137 mg/dL 70-100 H Result Not code = GMG) ConfirmedMeter ID: [id number] tor: 6[address] CARLOZ [facility] GLUCOMETER GLUCOSE- LAB USE [id number] 07:26:00 Test Item Value Reference Range Interpretation Comments GLUCOMETER (test code 73 mg/dL 70-100 Meter ID: = GMG) [id number] tor: 9379 JASSI SATT IEWHITE GLUCOMETER GLUCOSE- LAB USE [id number] 19:21:00 Test Item Value Reference Range Interpretation Comments GLUCOMETER (test code 109 mg/dL 70-100 H CLEANE D METERMeter ID: = GMG) [id number] tor: 14158 AMARILIS ARANDAI GLUCOMETER GLUCOSE- LAB USE [id number] 16:17:00 Test Item Value Reference Range Interpretation Comments GLUCOMETER (test code 135 mg/dL 70-100 H CLEANE D METERMeter ID: = GMG) [id number] tor: 8413 MARILU FOREMAN LL GLUCOMETER GLUCOSE- LAB USE [id number] 11:14:00 Test Item Value Reference Range Interpretation Comments GLUCOMETER (test 183 mg/dL 70-100 H Result Not code = GMG) ConfirmedMeter ID: [id number] tor: 1555 ARLEEN BARILLASMON S GLUCOMETER GLUCOSE- LAB USE [id number] 07:51:00 Test Item Value Reference Range Interpretation Comments GLUCOMETER (test code = 91 mg/dL 70-100 GARETH DIONNE METERMeter ID: GMG) [id number] tor: 82[address] COLLINS AGOSTO LTON GLUCOMETER GLUCOSE- LAB USE [id number] 19:20:00 Test Item Value Reference Range Interpretation Comments GLUCOMETER (test code 154 mg/dL 70-100 H CLEANE D METERMeter ID: = GMG) [id number] tor: 3831 VIRA JESSICASON GLUCOMETER GLUCOSE- LAB USE [id number] 16:29:00 Test Item Value Reference Range Interpretation Comments GLUCOMETER (test code = 292 mg/dL 70-100 H Mete r ID: GMG) [id number] tor: 1555 ARLEEN S IMMONS GLUCOMETER GLUCOSE- LAB USE [id number] 11:56:00 Test Item Value Reference Range Interpretation Comments GLUCOMETER (test 130 mg/dL 70-100 H DAILY MAINT ENANCEMeter code = GMG) ID: [id number] perator: 9379 [facility] IEWHITE GLUCOMETER GLUCOSE- LAB USE [id number] 07:40:00 Test Item Value Reference Range Interpretation Comments GLUCOMETER (test 75 mg/dL 70-100 DAILY MAINT ENANCEMeter code = GMG) ID: [id number] perator: 82[address] CO[address] AGOSTO LTON GLUCOMETER GLUCOSE- LAB USE [id number] 19:29:00 Test Item Value Reference Range Interpretation Comments GLUCOMETER (test code 191 mg/dL 70-100 H CLEANE D METERMeter ID: = GMG) [id number] tor: 3549 AKBAR [employer] GLUCOMETER GLUCOSE- LAB USE [id number] 16:55:00 Test Item Value Reference Range Interpretation Comments GLUCOMETER (test code 128 mg/dL 70-100 H CLEANE D METERMeter ID: = GMG) [id number] tor: 9379 JASSI SATT IEWHITE GLUCOMETER GLUCOSE- LAB USE [id number] 11:47:00 Test Item Value Reference Range Interpretation Comments GLUCOMETER (test 161 mg/dL 70-100 H DAILY MAINT ENANCEMeter code = GMG) ID: [id number] perator: 9379 JASSI SATT IEWHITE GLUCOMETER GLUCOSE- LAB USE [id number] 07:30:00 Test Item Value Reference Range Interpretation Comments GLUCOMETER (test code 113 mg/dL 70-100 H CLEANE D METERMeter ID: = GMG) [id number] tor: 82[address] COLL[address] AGOSTO LTON GLUCOMETER GLUCOSE- LAB USE [id number] 19:38:00 Test Item Value Reference Range Interpretation Comments GLUCOMETER (test code = 93 mg/dL 70-100 Mete r ID: GMG) [id number] tor: 8031 REI ACOSTA IBIANGA GLUCOMETER GLUCOSE- LAB USE [id number] 18:14:00 Test Item Value Reference Range Interpretation Comments GLUCOMETER (test code = 82 mg/dL 70-100 Mete r ID: GMG) [id number] tor: 2729 YOVANI BARAJAS GLUCOMETER GLUCOSE- LAB USE [id number] 16:21:00 Test Item Value Reference Range Interpretation Comments GLUCOMETER (test code = 64 mg/dL 70-100 L GARETH DIONNE METERMeter ID: GMG) [id number] tor: 1328 CYNDEE MURTrice HY GLUCOMETER GLUCOSE- LAB USE [id number] 11:59:00 Test Item Value Reference Range Interpretation Comments GLUCOMETER (test code = 162 mg/dL 70-100 H Mete r ID: GMG) [id number] tor: 6680 GUMARO GADSDEN GLUCOMETER GLUCOSE- LAB USE [id number] 07:52:00 Test Item Value Reference Range Interpretation Comments GLUCOMETER (test code 119 mg/dL 70-100 H Meter ID: = GMG) [id number] tor: 9379 JASSI SATT IEWHITE GLUCOMETER GLUCOSE- LAB USE [id number] 19:22:00 Test Item Value Reference Range Interpretation Comments GLUCOMETER (test code 126 mg/dL 70-100 H CLEANE D METERMeter ID: = GMG) [id number] tor: 2472 ISSHAWN SHAI GOKE GLUCOMETER GLUCOSE- LAB USE [id number] 17:41:00 Test Item Value Reference Range Interpretation Comments GLUCOMETER (test code 111 mg/dL 70-100 H CLEANE D METERMeter ID: = GMG) [id number] tor: 9379 JASSI SATT IEWHITE GLUCOMETER GLUCOSE- LAB USE [id number] 12:02:00 Test Item Value Reference Range Interpretation Comments GLUCOMETER (test code = 170 mg/dL 70-100 H Mete r ID: GMG) [id number] tor: 6680 GUMARO SCHMITTFIELD GLUCOMETER GLUCOSE- LAB USE [id number] 07:57:00 Test Item Value Reference Range Interpretation Comments GLUCOMETER (test code 65 mg/dL 70-100 L Meter ID: = GMG) [id number] tor: 9379 JASSI SATT IEWHITE GLUCOMETER GLUCOSE- LAB USE [id number] 19:25:00 Test Item Value Reference Range Interpretation Comments GLUCOMETER (test code 244 mg/dL 70-100 H CLEANE D METERMeter ID: = GMG) [id number] tor: 1818 JAJA B ADMUS GLUCOMETER GLUCOSE- LAB USE [id number] 16:51:00 Test Item Value Reference Range Interpretation Comments GLUCOMETER (test code 174 mg/dL 70-100 H CLEANE D METERMeter ID: = GMG) [id number] tor: 8825 CHAMP DEUTSCH RA GLUCOMETER GLUCOSE- LAB USE [id number] 11:30:00 Test Item Value Reference Range Interpretation Comments GLUCOMETER (test code 148 mg/dL 70-100 H CLEANE D METERMeter ID: = GMG) [id number] tor: 8280 [facility] [id number] 07:42:00 Test Item Value Reference Range Interpretation Comments GLUCOMETER (test code = 82 mg/dL 70-100 GARETH DIONNE METERMeter ID: GMG) [id number] tor: 8413 MARILU FOREMAN LL GLUCOMETER GLUCOSE- LAB USE [id number] 16:39:00 Test Item Value Reference Range Interpretation Comments GLUCOMETER (test code 116 mg/dL 70-100 H CLEANE D METERMeter ID: = GMG) [id number] tor: 3912 [facility] CANDELARIO GLUCOMETER GLUCOSE- LAB USE [id number] 12:04:00 Test Item Value Reference Range Interpretation Comments GLUCOMETER (test code 159 mg/dL 70-100 H CLEANE D METERMeter ID: = GMG) [id number] tor: 6771 CARLOZ VINNIE H GLUCOMETER GLUCOSE- LAB USE [id number] 07:46:00 Test Item Value Reference Range Interpretation Comments GLUCOMETER (test code 120 mg/dL 70-100 H Meter ID: = GMG) [id number] tor: 9379 JASSI BASSAmilcar IEWHITE GLUCOMETER GLUCOSE- LAB USE [id number] 19:38:00 Test Item Value Reference Range Interpretation Comments GLUCOMETER (test code 112 mg/dL 70-100 H CLEANE D METERMeter ID: = GMG) [id number] tor: 8379 BANG REBECCA S GLUCOMETER GLUCOSE- LAB USE [id number] 16:30:00 Test Item Value Reference Range Interpretation Comments GLUCOMETER (test code = 130 mg/dL 70-100 H Mete r ID: GMG) [id number] tor: 1555 ARLEEN S IMMONS GLUCOMETER GLUCOSE- LAB USE [id number] 11:15:00 Test Item Value Reference Range Interpretation Comments GLUCOMETER (test code = 166 mg/dL 70-100 H Mete r ID: GMG) [id number] tor: 1986 MAGGIE WALKER [id number] 01:04:00 Test Item Value Reference Range Interpretation Comments Hb A1C % (test code 5.4 % 3.8-6.4 = HBA) A1C % (test code = HbA1c (% ) A1C) Reference Range Normal <5.7 Prediabetes 5.7-6.4 Diabetic >=6.5 B12 [id number] 01:03:00 Test Item Value Reference Range Interpretation Comments VIT B12 (test code = A60) 243.0 pg/mL 180.0-914.0 [id number] 01:03:00 Test Item Value Reference Range Interpretation Comments FOLATE (test code = A75) 16.0 ng/mL 3.1-17.5 LIPID [id number] 01:03:00 Test Item Value Reference Range Interpretation Comments CHOLESTROL (test code 152 mg/dL 140-200 = 44A) TRIGLYCERI (test code 121 mg/dL See_Comment [Auto mated message] = 42B) The system [employer] generated this result transmitted ref erence range: <=149. T he reference range was not used to int erpret this result as normal/abnormal . HDL (test code = 83D) 50.0 mg/dL 40.0-60.0 LDL (test code = 34B) 79 mg/dL See_Comment [Auto mated message] The system [employer] generated this result transmitted ref erence range: <=99. Th e reference range was not used to int erpret this result as normal/abnormal . CHL/HDL (test code = 3.0 0.0-3.4 CHR) THYROID PANEL/SCREEN (TSH)2021-02-10 00:50:00 Test Item Value Reference Range Interpretation Comments TSH (test code = A57) 2.830 uIU/mL 0.358-3.740 [id number] 00:46:00 Test Item Value Reference Range Interpretation Comments PREALBUMIN (test code = 08E) 23 mg/dL 18-38 [id number] 00:27:00 Test Item Value Reference Range Interpretation Comments MAGNESIUM (test code = 48A) 2.2 mg/dL 1.8-2.4 URINALYSIS WITH [id number] 17:06:00 Test Item Value Reference Range Interpretation Comments COLOR (test code = COLU) YELLOW YELLOW CLARITY (test code = CLA) CLEAR CLEAR GLUCOSE UR (test code = UA GLUCOSE) TRACE NEGATIVE A BILI UR (test code = BILE) NEGATIVE NEGATIVE KETONES UR (test code = MATY) NEGATIVE NEGATIVE SP GRAVITY (test code = SPGR) 1.026 1.005-1.030 PH UR (test code = PH) 5.5 4.5-8.0 PROTEIN UR (test code = PU) NEGATIVE NEGATIVE UROBIL UR (test code = UROQ) 1.0 EU/dL 0.2-1.0 NITRITE UR (test code = NITRITE) NEGATIVE NEGATIVE BLOOD UR (test code = UA BLOOD) 1+ NEGATIVE A LEUK ES UR (test code = LEUK) NEGATIVE NEGATIVE WBC UR (test code = UWBC) 5 /HPF 0-3 H RBC UR (test code = URBC) 5 /HPF 0-2 H EPITH UR (test code = UEPC) FEW /LPF NONE A BACTERIA UR (test code = UBACT) FEW /HPF NONE A CAST UR (test code = CAST) /LPF NONE CRYSTAL UR (test code = CRYU) / LPF NONE MUCUS UR (test code = MUC) / HPF NONE AMORPH UR (test code = JOSÉ MIGULE) / HPF NONE TRICH UR (test code = UTRICH) /HPF NONE YEAST UR (test code = UY) /HPF NONE SPERM UR (test code = USPERM) /HPF NONE SARS-CoV (RAPID ANTIGEN)2021-02-09 17:06:00 Test Item Value Reference Range Interpretation Comments SARS-CoV (ANTIGEN) NEGATIVE NEGATIVE (test code = COVAG) COVID AG (test This test has been code = COVAGC) marketed under the FDA Emergency Use Authorization (EUA) to meet challenges of the COVID-19 pandemic. The validation standards normally enforced by the FDA and the [employer] the [employer] [employer] (CAP) are more stringent than those required for this test. Therefore, the result should be interpreted with caution and close attention to other clinical and epidemiological data DRUGS OF [id number] 16:49:00 Test Item Value Reference Range Interpretation Comments DRUG SCRN (test code = URINE DRUG HDOA) SCREEN This is an unconfirmed screening result and should not be used for non-medical purposes CANNABINOD (test code Negative NEGATIVE = 88C) AMPHETAMINE (test code Negative NEGATIVE = 84A) BENZODIAZP (test code Negative NEGATIVE = 86A) BARBITURAT (test code Negative NEGATIVE = 85A) OPIATES (test code = Negative NEGATIVE 92B) COCAINE (test code = Negative NEGATIVE 87A) PHENCYCLID (test code Negative NEGATIVE = 66A) METHADONE (test code = Negative NEGATIVE 64A) DOAH (test code = DOAH.) URINE DRUGSCREEN Cut-off values are as follows: Cannabinoids 50 ng/mL Cocaine 300 ng/mL Amphetamines 1000 ng/mL Phencyclidine 25 ng/mL Benzodiazepines 200 ng.mL Methadone 300 ng/mL Barbiturates 200 ng/mL Opiates 300 ng/mL BRAIN NATRIURETIC [id number] 16:30:00 Test Item Value Reference Range Interpretation Comments proBNP (test code = 1515 pg/mL See_Comment H [Automa varun message] The PBNP) system which ge nerated this result tra nsmitted reference range : <=450. The reference r nighat was not used to int erpret this result as normal/abnormal . [id number] 16:30:00 Test Item Value Reference Range Interpretation Comments CPK (test code = 32A) 41 IU/L 39-308 [id number] 16:30:00 Test Item Value Reference Range Interpretation Comments FERRITIN (test code = A19) 266.2 ng/mL 26.0-388.0 LDH-LACTIC [id number] 16:30:00 Test Item Value Reference Range Interpretation Comments LDH (test code = 33A) 210 IU/L 87-241 LIVER [id number] 16:29:00 Test Item Value Reference Range Interpretation Comments BILI TOTAL (test code 0.3 mg/dL 0.2-1.0 = 11A) BILI DIRCT (test code 0.2 mg/dL 0.0-0.2 = 12A) BILI INDIR (test code 0.1 mg/dL See_Comment [Auto mated message] = BILII) The system [employer] generated this result transmitted ref erence range: <=0.8. T he reference range was not used to interpr et this result as normal/abnormal . PROTEIN (test code = 7.0 g/dL 6.4-8.2 07D) ALBUMIN (test code = 3.5 g/dL 3.5-4.8 08D) GLOBULIN (test code = 3.5 g/dL 1.5-3.8 GLB) ALB/GLOB (test code = 1.0 1.0-2.6 AGRR) ALK PHOS (test code = 76 IU/L 42-121 35A) AST (test code = 30A) 17 IU/L See_Comment [Auto mated message] The system [employer] generated this result transmitted ref erence range: <=42. Th e reference range was not used to interpr et this result as normal/abnormal . ALT (test code = 31A) 20 IU/L See_Comment [Auto mated message] The system [employer] generated this result transmitted ref erence range: <=78. Th e reference range was not used to interpr et this result as normal/abnormal . [id number] 16:29:00 Test Item Value Reference Range Interpretation Comments ACETAMINPH (test code = 94M) <2.0 ug/mL 10.0-30.0 L ALCOHOL BLOOD (ETOH)2021-02-09 16:27:00 Test Item Value Reference Range Interpretation Comments ETOH (test code = ETHANOL HALC) The result is to be used only for medical purposes ALCOHOL (test <10 mg/dL See_Comment [Automated me ssage] code = 56A) The system [employer] generated this result transmit varun reference range : <=10. The refer ence range was not u sed to interpret th is result as normal/abnormal . BASIC METABOLIC [id number] 16:27:00 Test Item Value Reference Range Interpretation Comments GLUCOSE (test code 145 mg/dL 75-100 H = 06D) SODIUM (test code 141 mmol/L 136-145 = 01A) POTASSIUM (test 4.2 mmol/L 3.6-5.1 code = 01B) CHLORIDE (test 106 mmol/L 98-107 code = 04A) CO2 (test code = 30 mmol/L 22-32 02A) ANION GAP (test 9.2 mmol/L code = ANG) BUN (test code = 29 mg/dL 7-18 H 05D) CREATININE (test 1.0 mg/dL 0.7-1.3 code = 03E) GFR (test code = 69 See_Comment L [Automated GFR) mL/min/1.73m\S\2 message] Th e system which generated this result transmit varun reference range : >=90. The reference range was not used to interpret this result as normal/abnormal . GFR 80 See_Comment L [Automated MALAGASY (test mL/min/1.73m\S\2 message] The code = GFRAA) system which generated this result transmit varun reference range : >=90. The reference range was not used to interpret this result as normal/abnormal . EGFR (test code = eGFR BY EGFR) CKD-EPI CALCULATION IS NOT RECOMMENDED FOR PATIENTS UNDER 18 YEARS OF AGE. BUN/CREA (test 28 12-20 H code = BCR) CALCIUM (test code 9.3 mg/dL 8.3-9.5 = 09D) XR CHEST 1 VIEW [id number] 16:26:40 [facility] [facility] : 1940 Sex: MEXAMINATION:XR CHEST 1 VIEW PORTABLECLINICAL INDICATION:Male, 80 years year old with Altered mental statusCOMPARISON: None.FINDINGS:Single view(s) of the chest submitted.Support Devices: None.Heart/Mediastinum: Cardiac silhouette is normal in size. Mediastinal contours are normal.Lungs/Pleura: Pulmonary vessels are normal in size. Lungs are well aerated and clear. No pleural effusion is identified. No pneumothorax is present.Bones: Visualized skeleton is normal.IMPRESSION:Normal radiographic examination of the chest.Electronically signed by: Ry Devlin MD 02/09/2021 4:26 PM CDT [id number] 16:26:00 Test Item Value Reference Range Interpretation Comments TROPONIN I (test code = A84) <0.015 ng/mL 0.000-0.045 C-REACTIVE PROTEIN [id number] 16:26:00 Test Item Value Reference Range Interpretation Comments CRP QUANT (test code <2.9 mg/L 0.0-2.9 = CRPQ) Method Change (test Please note the code = METHOD) change in Method and the reference range AMMONIA [id number] 16:23:00 Test Item Value Reference Range Interpretation Comments AMMONIA (test code = 54A) 14 umol/L 11-32 [id number] 16:22:00 Test Item Value Reference Range Interpretation Comments SALICYLATE (test code = 94B) <1.7 mg/dL 2.8-20.0 L CBC (INCLUDES AUTOMATED DIFFERENTIAL)2021-02-09 16:12:00 Test Item Value Reference Range Interpretation Comments WBC (test code = WBC) 9.5 10\S\3/uL 4.5-11.0 RBC (test code = RBC) 4.55 10\S\6/uL 3.80-5.80 HGB (test code = HBG) 13.6 g/dL 14.0-18.0 L HCT (test code = HCT) 40.6 % 35.0-46.0 MCV (test code = MCV) 89.2 fL 80.0-94.0 MCH (test code = MCH) 29.9 pg 27.0-31.0 MCHC (test code = MCHC) 33.5 g/dL 32.0-36.0 RDW (test code = RDW) 14.4 % 11.5-14.5 PLT (test code = PLT) 253 10\S\3/uL 130-400 MPV (test code = MPV) 10.5 fL 9.4-12.4 NEUTROP # (test code = NE#) 6.0 10\S\3/uL 2.0-8.0 LYMPH # (test code = LY#) 2.5 10\S\3/uL 1.2-4.0 MONOCYTE # (test code = MO#) 0.8 10\S\3/uL 0.0-1.1 EOSINOPH # (test code = EO#) 0.2 10\S\3/uL 0.0-0.7 BASOPHIL # (test code = BA#) 0.1 10\S\3/uL 0.0-0.3 IG # (test code = IG#) 0.03 10\S\3/uL 0.00-0.06 NRBC # (test code = NRBC#) 0.00 10\S\3/uL 0.00-0.01 NEUTROPH % (test code = NE%) 62.6 % 35.0-73.0 LYMPH % (test code = LY%) 25.7 % 20.0-55.0 MONO % (test code = MO%) 8.7 % 2.5-10.0 EOSINOPH % (test code = EO%) 1.9 % 0.0-5.0 BASOPHIL % (test code = BA%) 0.8 % 0.0-2.0 IG % (test code = IG%) 0.3 % 0.0-0.8 NRBC% (test code = NRBC%) 0.0 % 0.0-0.2 MANDIFF (test code = MDIFF) NO NO RBC MORPH (test code = RBCMOR) NORMAL
[2022-03-28 16:07] LABS: Hematocrit 37.6 % (39.6-49.0); Lymphocytes % 22.8 % (15.3-44.8); MPV 7.5 fL (7.6-11.3); RBC Red Blood Cell Count 4.37 M/uL (4.33-5.43)
[2022-03-28 16:25] LABS: Magnesium 1.7 mg/dL (1.8-2.4); Potassium 4.1 mmol/L (3.5-5.1); Troponin High Sensitivity 8.4 pg/mL (<58.9)
[2022-03-28 17:16] LABS: Urine Blood Negative (Negative); Urine Glucose Negative (Negative); Urine Protein Trace (Negative); Urine Specific Gravity >=1.030 (1.005-1.030); Urine pH 5.5 (5.0-7.0)
[2022-03-28 17:29] LABS: Urine Bacteria <20 /HPF (<20); Urine Mucus 2+ /HPF (None Seen); Urine RBC <5 /HPF (None Seen)
--- NOTE | 2022-03-28 18:10 | ER ---
Nurse's Notes [facility] Name: Stevie López Age: 81 yrs Sex: Male : 1940 Arrival Date: 03/28/2022 Time: 14:46 Bed 20 Private MD: Diagnosis: Weakness Presentation: 03/28 15:27 Chief complaint: Patient states: Patient was walking, fell to his knees, uses a cane to mb8 walk. Denies any weakness, n/v/d or pain. Coronavirus screen: Vaccine status: Patient reports receiving the 2nd dose of the covid vaccine. Ebola Screen: Patient negative for fever greater than or equal to 101.5 degrees Fahrenheit, and additional compatible Ebola Virus Disease symptoms Patient denies exposure to infectious person. Patient denies travel to an Ebola-affected area in the 21 days before illness onset. Initial Sepsis Screen: Does the patient meet any 2 criteria? No. Patient's initial sepsis screen is negative. Does the patient have a suspected source of infection? No. Patient's initial sepsis screen is negative. Risk Assessment: Do you want to hurt yourself or someone else? Patient reports no desire to harm self or others. Onset of symptoms was March 28, 2022. 15:27 Method Of Arrival: EMS: [facility] mb8 15:27 Acuity: RANGEL 4 mb8 Triage Assessment: 18:59 General: Appears. mb8 Historical: - Allergies: 15:29 Codeine; mb8 15:29 PENICILLINS; mb8 - PMHx: 15:29 Alzheimers; Bipolar disorder; Dementia; Depression; Diabetes - NIDDM; mb8 - Immunization history:: unknown . - Social history:: Smoking status: Patient denies any tobacco usage or history of. Screenin:30 Abuse screen: Denies threats or abuse. Denies injuries from another. Nutritional mb8 screening: No deficits noted. Tuberculosis screening: No symptoms or risk factors identified. Fall Risk Fall in past 12 months (25 points). Secondary diagnosis (15 points) No IV (0 pts). Ambulatory Aid- Crutches/Cane/Walker (15 pts). Gait- Weak (10 pts.). Mental Status- Overestimates/Forgets Limitations (15 pts.). Total Patel Fall Scale indicates High Risk Score (45 or more points). Fall prevention measures have been instituted. Side Rails Up X 2 Frequent Obs/Assessments Occuring As available patient and family educated on Fall Prevention Program and Strategies. Assessment: 15:29 Pain: Denies pain. Neuro: Level of Consciousness is awake, alert, obeys commands, mb8 Oriented to person, place, time, situation, Intern Brand are equal bilaterally Moves all extremities. Gait is steady, Speech is normal, Facial symmetry appears normal, Pupils are PERRLA, Intact. Cardiovascular: No deficits noted. Denies chest pain, shortness of breath. Respiratory: No deficits noted. Denies cough, shortness of breath. GI: No deficits noted. Patient currently denies diarrhea, nausea, vomiting. 15:29 General: Appears in no apparent distress. Behavior is calm, cooperative, appropriate mb8 for age. 17:01 Reassessment: Patient and/or family updated on plan of care and expected duration. Pain mb8 level reassessed. Patient is alert, oriented x 3, equal unlabored respirations, skin warm/dry/pink. Patient denies pain at this time. 19:37 Reassessment: Patient appears in no apparent distress at this time. Discharge pending aa9 [facility] transportation. General: Appears comfortable, slender, Behavior is calm, cooperative, appropriate for age. Neuro: Level of Consciousness is awake, alert, obeys commands, Oriented to person, place, time, situation. Cardiovascular: No deficits noted. Denies chest pain, shortness of breath. Respiratory: Airway is patent Respiratory effort is even, unlabored. GI: No signs and/or symptoms were reported involving the gastrointestinal system. : No signs and/or symptoms were reported regarding the genitourinary system. Derm: Skin with poor turgor. 20:20 Reassessment: pt removed IV site, minimal bleeding noted, Catheter intact at bedside. aa9 20:30 Reassessment: Patient appears in no apparent distress at this time. pt pleasantly aa9 confused. Reorientation needed to situation, time and place. General: Appears comfortable, slender, Behavior is calm, cooperative, appropriate for age. Neuro: Level of Consciousness is awake, alert, obeys commands, Oriented to person. Cardiovascular: Patient's skin is warm and dry. Respiratory: Airway is patent Respiratory effort is even, unlabored. GI: No signs and/or symptoms were reported involving the gastrointestinal system. : No signs and/or symptoms were reported regarding the genitourinary system. 21:30 General: Appears in no apparent distress. comfortable, slender, Behavior is calm, aa9 cooperative, appropriate for age. Pain: Denies pain. Neuro: Level of Consciousness is awake, alert, obeys commands, Oriented to person, place. Cardiovascular: Patient's skin is warm and dry. Respiratory: Airway is patent Respiratory effort is even, unlabored. GI: No deficits noted. : No signs and/or symptoms were reported regarding the genitourinary system. Derm: Skin with poor turgor. 22:30 Reassessment: Patient appears in no apparent distress at this time. reorientation to [facility] room needed, pt offered water and additional blankets. patient refused. denies concerns a this time. 22:30 General: Appears comfortable, slender, Behavior is calm, cooperative, appropriate for [facility] age. Pain: Denies pain. Neuro: Level of Consciousness is awake, alert, obeys commands, Oriented to person. Cardiovascular: No deficits noted. Respiratory: Airway is patent Respiratory effort is even, unlabored. GI: No signs and/or symptoms were reported involving the gastrointestinal system. : No signs and/or symptoms were reported regarding the genitourinary system. Derm: No signs and/or symptoms reported regarding the dermatologic system. 03/29 01:00 Reassessment: Patient appears in no apparent distress at this time. report provided to [address] pt pleasantly confused, transported via stretcher, pt stable and ambulatory. General: Appears in no apparent distress. comfortable, slender, Behavior is calm, cooperative, appropriate for age. Pain: Denies pain. Neuro: Level of Consciousness is awake, alert, obeys commands, Oriented to person. Cardiovascular: Patient's skin is warm and dry. Respiratory: Airway is patent Respiratory effort is even, unlabored. GI: No signs and/or symptoms were reported involving the gastrointestinal system. : No signs and/or symptoms were reported regarding the genitourinary system. Vital Signs: 03/28 15:27 BP 150 / 78; Pulse 67; Resp 15; Temp 97.8; Pulse Ox 99% on R/A; Pain 0/10; mb8 17:00 BP 160 / 74; Pulse 70; Resp 18; Temp 98; Pulse Ox 100% on R/A; Pain 0/10; mb8 19:00 BP 154 / 72; Pulse 68; Resp 16 S; Pulse Ox 98% on R/A; Pain 0/10; aa9 03/29 01:00 BP 142 / 73; Pulse 72; Resp 18; Pulse Ox 98% on R/A; Pain 0/10; aa9 ED Course: 03/28 14:46 Patient arrived in ED. eb 14:51 Selwyn He PA is PHCP. ms3 15:10 Quiana Bello, RN is Primary Nurse. jl7 15:27 Severo Houston, RN is Primary Nurse. mb8 15:29 Triage completed. mb8 15:29 Arm band placed on. mb8 15:30 Patient has correct armband on for positive identification. Placed in gown. Bed in low mb8 position. Call light in reach. Side rails up X2. Client placed on continuous cardiac and pulse oximetry monitoring. NIBP monitoring applied. 15:30 No provider procedures requiring assistance completed. mb8 15:50 Inserted saline lock: 20 gauge in left antecubital area, using aseptic technique. Blood mb8 collected. 19:40 Primary Nurse role handed off by Severo Houston, RN mw2 20:30 Diet: Patient given snack. Patient given juice. Tolerated well. aa9 20:35 Michael Clifton MD is Attending Physician. mw2 21:01 Tim called they arranged transport with [facility] ETA 2 hours. mw2 23:13 [facility] ETA at 0030. mw2 03/29 00:59 IV discontinued, intact, pt dc'd IV earlier today. aa9 Administered Medications: 03/28 18:26 Drug: Magnesium Sulfate 1 grams Route: IVPB; Infused Over: 1 hrs; Site: left mb8 antecubital; 19:39 Follow up: Response: No adverse reaction; IV Status: Completed infusion; IV Intake: aa9 100ml Medication: 15:30 VIS not applicable for this client. mb8 Intake: 19:39 IV: 100ml; Total: 100ml. aa9 Outcome: 18:09 Discharge ordered by . cp 18:58 Discharged to fpc. Report called to Zeina arias 03/29 00:59 Condition: stable aa9 Discharge instructions given to patient, fpc, Instructed on discharge instructions, follow up and referral plans. Demonstrated understanding of instructions, follow-up care. 01:03 Patient left the ED. aa9 Signatures: Selwyn He PA PA cp Leal, Jahala RN RN jl7 Beverley Luna mw2 Leta Lee Marcus, DO DO ms3 Betina Soliz RN RN aa9 Severo Houston RN RN mb8 Corrections: (The following items were deleted from the chart) 03/28 21:53 20:20 Reassessment: pt removed IV site, minimal bleeding noted aa9 aa9
--- NOTE | 2022-03-28 18:10 | EDPHYS ---
Physician Documentation [facility] Name: Stevie López Age: 81 yrs Sex: Male : 1940 Arrival Date: 03/28/2022 Time: 14:46 Bed 20 Private MD: ED Physician Michael Clifton HPI: 03/28 15:00 This 81 yrs old Male presents to ER via EMS with complaints of General Weakness. cp 15:00 Patient is a resident of local [facility] brought to ED by EMS with concern for cp general weakness. Patient reportedly was observed to have fallen to knees. No injuries sustained. Patient does not present with any complaints. Patient with history of dementia. Historical: - Allergies: 15:29 Codeine; mb8 15:29 PENICILLINS; mb8 - PMHx: 15:29 Alzheimers; Bipolar disorder; Dementia; Depression; Diabetes - NIDDM; mb8 - Immunization history:: unknown . - Social history:: Smoking status: Patient denies any tobacco usage or history of. ROS: 15:05 Constitutional: Negative for body aches, chills, fever, poor PO intake. cp 15:05 Eyes: Negative for injury, pain, redness, and discharge. cp 15:05 ENT: Negative for drainage from ear(s), ear pain, sore throat, difficulty swallowing, difficulty handling secretions. 15:05 Cardiovascular: Negative for chest pain, edema, palpitations. 15:05 Respiratory: Negative for cough, shortness of breath, wheezing. 15:05 Abdomen/GI: Negative for abdominal pain, nausea, vomiting, and diarrhea, black/tarry stool, rectal bleeding. 15:05 Back: Negative for pain at rest, pain with movement. 15:05 : Negative for urinary symptoms. 15:05 Neuro: Positive for weakness, Negative for altered mental status, dizziness, headache. 15:05 All other systems are negative. Exam: 15:10 Constitutional: The patient appears in no acute distress, alert, awake, comfortable, cp non-diaphoretic, non-toxic, well developed, well nourished. 15:10 Head/Face: Normocephalic, atraumatic. cp 15:10 Eyes: Periorbital structures: appear normal, Pupils: equal, round, and reactive to light and accomodation, Extraocular movements: intact throughout, Conjunctiva: normal, no exudate, no injection, Lids and lashes: appear normal, bilaterally. 15:10 ENT: External ear(s): are unremarkable, Nose: is normal, Mouth: Lips: moist, Oral mucosa: moist, Posterior pharynx: Airway: no evidence of obstruction, patent. 15:10 Neck: ROM/movement: is normal, is supple, without pain, no range of motions limitations, no nuchal rigidity. 15:10 Chest/axilla: Inspection: normal, Palpation: is normal, no crepitus, no tenderness. 15:10 Cardiovascular: Rate: normal, Rhythm: regular. 15:10 Respiratory: the patient does not display signs of respiratory distress, Respirations: normal, no use of accessory muscles, no retractions, labored breathing, is not present, Breath sounds: are clear throughout, no decreased breath sounds, no stridor, no wheezing. 15:10 Abdomen/GI: Inspection: abdomen appears normal, Bowel sounds: active, all quadrants, Palpation: abdomen is soft and non-tender, in all quadrants. 15:10 Back: pain, is absent, ROM is normal. 15:10 Skin: cellulitis, is not appreciated, no rash present. 15:10 Neuro: Orientation: no acute changes, per EMS, Mentation: no acute changes, per EMS, Motor: moves all fours, strength is normal, Sensation: no obvious gross deficits. 15:45 ECG was reviewed by the Attending Physician. Vital Signs: 15:27 BP 150 / 78; Pulse 67; Resp 15; Temp 97.8; Pulse Ox 99% on R/A; Pain 0/10; mb8 17:00 BP 160 / 74; Pulse 70; Resp 18; Temp 98; Pulse Ox 100% on R/A; Pain 0/10; mb8 19:00 BP 154 / 72; Pulse 68; Resp 16 S; Pulse Ox 98% on R/A; Pain 0/10; aa9 03/29 01:00 BP 142 / 73; Pulse 72; Resp 18; Pulse Ox 98% on R/A; Pain 0/10; aa9 MDM: 03/28 14:58 Patient medically screened. 18:08 Data reviewed: vital signs, nurses notes, lab test result(s), EKG. 18:08 Counseling: I had a detailed discussion with the patient and/or guardian regarding: the cp historical points, exam findings, and any diagnostic results supporting the discharge/admit diagnosis, lab results, to return to the emergency department if symptoms worsen or persist or if there are any questions or concerns that arise at home. 03/28 15:26 Order name: Basic Metabolic Panel; Complete Time: 17:30 cp 03/28 17:30 Interpretation: Normal except: GLUC 133; BUN 21; GFR 57. cp 03/28 15:26 Order name: CBC with Diff; Complete Time: 16:13 cp 03/28 15:26 Order name: Magnesium; Complete Time: 17:30 cp 03/28 17:31 Interpretation: Abnormal: MG 1.7. cp 03/28 15:26 Order name: Troponin HS; Complete Time: 17:30 cp 03/28 15:26 Order name: Urine Microscopic Only; Complete Time: 17:30 cp 03/28 17:17 Order name: Urine Dipstick-Ancillary; Complete Time: 17:30 EDMS 03/28 14:58 Order name: EKG; Complete Time: 14:59 cp 03/28 14:58 Order name: EKG - Nurse/Tech; Complete Time: 15:53 cp 03/28 15:26 Order name: Cardiac monitoring; Complete Time: 15:53 cp 03/28 15:26 Order name: IV Saline Lock; Complete Time: 16:06 cp 03/28 15:26 Order name: Labs collected and sent; Complete Time: 16:07 cp 03/28 15:26 Order name: O2 Per Protocol; Complete Time: 15:53 cp 03/28 15:26 Order name: O2 Sat Monitoring; Complete Time: 15:53 cp 03/28 15:26 Order name: Urine Dipstick-Ancillary (obtain specimen); Complete Time: 17:24 cp EC:45 Rate is 72 beats/min. Rhythm is regular. AK interval is normal. QRS interval is cp prolonged at 134 msec. QT interval is normal. T waves are Inverted in lead aVR. Interpreted by me. Reviewed by me. Administered Medications: 18:26 Drug: Magnesium Sulfate 1 grams Route: IVPB; Infused Over: 1 hrs; Site: left mb8 antecubital; 19:39 Follow up: Response: No adverse reaction; IV Status: Completed infusion; IV Intake: aa9 100ml Disposition: 18:12 Co-signature as Attending Physician, Onel Salinas DO I was immediately available on-site ms3 in the Emergency Department for consultation in the care of the patient. Disposition Summary: 03/28/22 18:09 Discharge Ordered Location: Home cp Problem: new cp Symptoms: have improved cp Condition: Stable cp Diagnosis - Weakness cp Followup: cp - With: Emergency Department - When: As needed - Reason: Worsening of condition Discharge Instructions: - Discharge Summary Sheet cp - Weakness cp Forms: - Medication Reconciliation Form cp - Thank You Letter cp - Antibiotic Education cp - Prescription Opioid Use cp Signatures: Dispatcher [employer] EDMS Norman Grace PA PA jmm Page, Corey, PA PA cp Onel Salinas DO DO ms3 Betina Soliz RN RN aa9 Severo Houston RN RN mb8
[2022-03-28] MEDS ORDERED: MAGNESIUM SULFATE 1 gm IVPB 1 GM/100 ML BAG IV ONE (18:24)
[2022-03-29 01:40] VITALS: TEMP 98
[2022-03-29 01:46] VITALS: O2SAT 98
[2022-03-29 01:52] VITALS: BP 142/73
--- NOTE | 2022-03-31 16:07 | EKG ---
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
== END 2022-03-29 01:03 | disposition home or self-care (01) ==
LOC: ER 14:45
DX: R53.1 Weakness (principal); G30.9 Alzheimer's disease, unspecified; F02.80 Dementia in other diseases classified elsewhere, unspecified severity, without behavioral disturbance, psychotic disturbance, mood disturbance, and anxiety; Z88.0 Allergy status to penicillin; Z88.5 Allergy status to narcotic agent
CPT/HCPCS: 96365; 93005; 85025; 80048; 36415; 83735; 84484; 99284; J3475; 81003; 81015